=== PATIENT | female | born 1965 | race Two or more races ===

== ENCOUNTER 2022-08-29 20:29 | Inpatient (IN) | payer MEDICAID, OTHER ==
[~2022-08-29] VITALS: Ht 157.5 cm; Wt 61.0 kg
[2022-08-29 21:54] LABS: Albumin 3.8 g/dL (3.4-5.0); BUN/Creatinine Ratio 22.2 (10.0-20.0); Calcium 9.3 mg/dL (8.5-10.1); Potassium 3.4 mmol/L (3.5-5.1)
[2022-08-29 21:57] LABS: Basophils # (auto) 0.1 10 ^3/uL (0-0.2); Eosinophils # (auto) 0.2 10 ^3/uL (0-0.8); Eosinophils % (auto) 2.1 % (0.0-7.0); Hematocrit 37.3 % (36.0-46.0); Hemoglobin 12.8 g/dL (12.2-16.2); Lymphocytes # (auto) 1.5 10 ^3/uL (0.4-5.4); Lymphocytes % (auto) 19.5 % (10.0-50.0); Mean Corpuscular Hemoglobin 31.6 pg (28.0-32.0); Mean Corpuscular Hgb Conc. 34.3 g/dL (32.0-36.0); Monocytes # (auto) 0.5 10 ^3/uL (0-1.3); Monocytes % (auto) 6.2 % (0.0-12.0); Neutrophils # (auto) 5.5 10 ^3/uL (1.6-8.6); Neutrophils % (auto) 71.2 % (37.0-80.0); Red Blood Cells 4.05 10^6/uL (4.0-5.20); Red Cell Distribution Width 13.1 % (11.8-14.3); White Blood Cell 7.8 10^3/uL (4.4-10.8)
[2022-08-29 21:58] LABS: Bilirubin, Total 0.3 mg/dL (0.2-1.0); Total Protein 7.6 g/dL (6.4-8.2)
[2022-08-29 22:08] LABS: INR 1.04 (0.9-1.15); Partial Thromboplastin Time 28.5 SEC (24.5-34.5)
[2022-08-30] MEDS ORDERED: ONDANSETRON HCL 4 MG/2 ML VIAL IV ONE (02:15)
[2022-08-30] MEDS ORDERED: HYDROmorphone HCL 2 MG/ML VL/or syr IV ONE (02:15)
[2022-08-30] MEDS ORDERED: ENOXAPARIN SOD 60 MG/0.6 ML SYRINGE SC SCH ×2 (02:30→10:00)
[2022-08-30] MEDS ORDERED: ONDANSETRON HCL 4 MG/2 ML VIAL IV PRN (02:30)
[2022-08-30] MEDS ORDERED: DOCUSATE SOD 100 MG CAP PO PRN (02:30)
[2022-08-30] MEDS ORDERED: ACETAMINOPHEN 325 MG TAB PO PRN (02:30)
[2022-08-30] MEDS ORDERED: NITROGLYCERIN 0.4 MG SL TAB SL PRN (02:30)
[2022-08-30] MEDS ORDERED: DEXTROSE (50%) 50ML SYRG IV PRN (02:30)
[2022-08-30] MEDS ORDERED: MORPHINE SULFATE INJ 2 MG/ml SYRG IV PRN (02:30)
[2022-08-30] MEDS: SODIUM CHLORIDE 0.9% 1,000 ML IV SCH ×2 (03:10→19:10)
[2022-08-30] MEDS ORDERED: POTASSIUM CHL 20 Meq TABLET PO ONE (04:15)
[2022-08-30 04:58] LABS: Basophils # (auto) 0.1 10 ^3/uL (0-0.2); Basophils % (auto) 1.1 % (0.0-2.0); Eosinophils # (auto) 0.2 10 ^3/uL (0-0.8); Eosinophils % (auto) 2.7 % (0.0-7.0); Hematocrit 36.4 % (36.0-46.0); Hemoglobin 12.3 g/dL (12.2-16.2); Lymphocytes # (auto) 1.7 10 ^3/uL (0.4-5.4); Lymphocytes % (auto) 26.2 % (10.0-50.0); Mean Corpuscular Hemoglobin 31.3 pg (28.0-32.0); Mean Corpuscular Hgb Conc. 33.8 g/dL (32.0-36.0); Mean Corpuscular Volume 92.6 fL (80.0-100.0); Monocytes # (auto) 0.5 10 ^3/uL (0-1.3); Monocytes % (auto) 8.3 % (0.0-12.0); Neutrophils # (auto) 4.1 10 ^3/uL (1.6-8.6); Neutrophils % (auto) 61.7 % (37.0-80.0); Red Blood Cells 3.93 10^6/uL (4.0-5.20); Red Cell Distribution Width 13.2 % (11.8-14.3); White Blood Cell 6.6 10^3/uL (4.4-10.8)
[2022-08-30 05:20] LABS: Potassium 3.4 mmol/L (3.5-5.1)
[2022-08-30 05:35] LABS: Albumin 3.8 g/dL (3.4-5.0); BUN/Creatinine Ratio 23.6 (10.0-20.0); Bilirubin, Total 0.3 mg/dL (0.2-1.0); Calcium 9.3 mg/dL (8.5-10.1); Total Protein 7.1 g/dL (6.4-8.2)
[2022-08-30] MEDS: ACCU-CHEK COMFORT CURVE STRIP VI SCH ×4 (06:34→21:56)
[2022-08-30] MEDS: InsuLIN REG 1unit/0.01ml Soln (100units/ml) SC SCH ×4 (07:02→21:46)
[2022-08-30] MEDS: FAMOTIDINE (10MG/ML) 2ML VL IV SCH ×2 (09:56→21:46)
[2022-08-30 11:00] VITALS: BP 145/59
[2022-08-30] MEDS ORDERED: HEPARIN SODIUM (PORCINE) 5000 UNITS/ML 1ML VIAL IV ONE (11:15)
[2022-08-30] MEDS: HYDROmorphone HCL 2 MG/ML VL/or syr IV PRN (11:18)
[2022-08-30 11:36] LABS: Basophils # (auto) 0.1 10 ^3/uL (0-0.2); Basophils % (auto) 1.2 % (0.0-2.0); Eosinophils # (auto) 0.1 10 ^3/uL (0-0.8); Hematocrit 37.1 % (36.0-46.0); Hemoglobin 12.5 g/dL (12.2-16.2); Lymphocytes # (auto) 1.3 10 ^3/uL (0.4-5.4); Lymphocytes % (auto) 19.3 % (10.0-50.0); Mean Corpuscular Hemoglobin 30.9 pg (28.0-32.0); Mean Corpuscular Hgb Conc. 33.6 g/dL (32.0-36.0); Monocytes # (auto) 0.4 10 ^3/uL (0-1.3); Monocytes % (auto) 6.4 % (0.0-12.0); Neutrophils # (auto) 4.7 10 ^3/uL (1.6-8.6); Neutrophils % (auto) 72.1 % (37.0-80.0); Red Blood Cells 4.03 10^6/uL (4.0-5.20); Red Cell Distribution Width 13.3 % (11.8-14.3); White Blood Cell 6.6 10^3/uL (4.4-10.8)
[2022-08-30 11:51] LABS: INR 1.08 (0.9-1.15); Partial Thromboplastin Time 29.7 SEC (24.5-34.5)
[2022-08-30 12:56] VITALS: BP 135/70
[2022-08-30] MEDS ORDERED: PNEUMOCOCCAL VACC POLYS 25 MCG/0.5 ML VIAL IM ONE (13:00)
[2022-08-30] MEDS ORDERED: FURO1TAB33 PO (13:17)
[2022-08-30] MEDS ORDERED: GABA-1250 PO (13:17)
[2022-08-30] MEDS ORDERED: LISI-706 PO (13:17)
[2022-08-30] MEDS ORDERED: ASPI-543 PO (13:17)
[2022-08-30] MEDS ORDERED: ATOR10TA PO (13:17)
[2022-08-30] MEDS ORDERED: METF-370 PO (13:17)
[2022-08-30] MEDS ORDERED: INSLANTI SC (13:17)
[2022-08-30] MEDS ORDERED: BACL10TA PO (13:17)
[2022-08-30] MEDS ORDERED: INSLISPI SC (13:17)
[2022-08-30] MEDS ORDERED: ESCI10TA PO (13:17)
[2022-08-30 17:18] VITALS: BP 147/55
[2022-08-30] MEDS: HEPARIN DRIP/D5W 100UNITS/ML 250 ML IV SCH (17:50)
[2022-08-30 20:00] VITALS: BP 147/55
[2022-08-30 22:00] VITALS: BP 154/59
[2022-08-30] MEDS ORDERED: ATORVASTATIN 20 MG TAB PO SCH (22:00)
[2022-08-31] VITALS (7 sets, daily range): BP systolic 119–139; BP diastolic 55–83
[2022-08-31 01:00] LABS: INR 1.04 (0.9-1.15); Partial Thromboplastin Time 26.8 SEC (24.5-34.5)
[2022-08-31] MEDS ORDERED: HEPARIN SODIUM (PORCINE) 5000 UNITS/ML 1ML VIAL IV NR (01:45)
[2022-08-31] MEDS: HYDROmorphone HCL 2 MG/ML VL/or syr IV PRN (06:02)
[2022-08-31] MEDS: ACCU-CHEK COMFORT CURVE STRIP VI SCH ×4 (06:03→21:56)
[2022-08-31] MEDS: InsuLIN REG 1unit/0.01ml Soln (100units/ml) SC SCH ×4 (06:12→21:48)
[2022-08-31 06:28] LABS: Basophils # (auto) 0.1 10 ^3/uL (0-0.2); Basophils % (auto) 1.3 % (0.0-2.0); Eosinophils # (auto) 0.4 10 ^3/uL (0-0.8); Eosinophils % (auto) 4.3 % (0.0-7.0); Hematocrit 36.8 % (36.0-46.0); Hemoglobin 12.6 g/dL (12.2-16.2); Lymphocytes # (auto) 2.6 10 ^3/uL (0.4-5.4); Lymphocytes % (auto) 30.3 % (10.0-50.0); Mean Corpuscular Hemoglobin 31.6 pg (28.0-32.0); Mean Corpuscular Hgb Conc. 34.3 g/dL (32.0-36.0); Monocytes # (auto) 0.7 10 ^3/uL (0-1.3); Monocytes % (auto) 7.6 % (0.0-12.0); Neutrophils # (auto) 4.9 10 ^3/uL (1.6-8.6); Neutrophils % (auto) 56.5 % (37.0-80.0); Red Cell Distribution Width 13.2 % (11.8-14.3); White Blood Cell 8.6 10^3/uL (4.4-10.8)
[2022-08-31 06:43] LABS: Albumin 3.7 g/dL (3.4-5.0); Calcium 9.2 mg/dL (8.5-10.1); Potassium 3.2 mmol/L (3.5-5.1)
[2022-08-31 06:46] LABS: BUN/Creatinine Ratio 20.8 (10.0-20.0); Bilirubin, Total 0.4 mg/dL (0.2-1.0); Total Protein 7.2 g/dL (6.4-8.2)
[2022-08-31] MEDS: FAMOTIDINE (10MG/ML) 2ML VL IV SCH ×2 (09:18→20:27)
[2022-08-31 10:04] LABS: INR 3.35 (0.9-1.15); Partial Thromboplastin Time 57.3 SEC (24.5-34.5)
[2022-08-31] MEDS: HEPARIN DRIP/D5W 100UNITS/ML 250 ML IV SCH ×2 (10:52→13:28)
[2022-08-31] MEDS: SODIUM CHLORIDE 0.9% 1,000 ML IV SCH (11:17)
[2022-08-31 11:39] LABS: INR 1.09 (0.9-1.15)
[2022-08-31 12:24] LABS: Partial Thromboplastin Time 129.8 SEC (24.5-34.5)
[2022-08-31] MEDS ORDERED: ASPirin 81 mg TAB PO ONE (12:45)
[2022-08-31] MEDS ORDERED: FUROSEMIDE 20 MG TAB PO ONE (12:45)
[2022-08-31] MEDS ORDERED: ATORVASTATIN 20 MG TAB PO ONE (12:45)
[2022-08-31] MEDS: GABAPENTIN 300 MG CAP PO SCH ×2 (14:07→20:35)
[2022-08-31] MEDS: BACLOFEN 10 MG TAB PO PRN (14:08)
[2022-08-31] MEDS: LISINOPRIL HCTZ PO SCH (16:49)
[2022-08-31 20:30] LABS: INR 1.06 (0.9-1.15); Partial Thromboplastin Time 57.2 SEC (24.5-34.5)
[2022-08-31] MEDS: INSULIN LANTUS (GLARGINE) 1 /0.01ml (100units/ml) SC SCH (21:54)
[2022-09-01] MEDS: HYDROcodone-ACET 5/325MG TAB PO PRN (00:44)
[2022-09-01] MEDS: SODIUM CHLORIDE 0.9% 1,000 ML IV SCH ×2 (04:30→21:49)
[2022-09-01 05:00] VITALS: BP 124/64
[2022-09-01] MEDS: GABAPENTIN 300 MG CAP PO SCH ×3 (05:30→21:56)
[2022-09-01] MEDS: ACCU-CHEK COMFORT CURVE STRIP VI SCH ×4 (05:31→21:57)
[2022-09-01] MEDS: InsuLIN REG 1unit/0.01ml Soln (100units/ml) SC SCH ×4 (06:15→21:58)
[2022-09-01 09:00] VITALS: BP 152/64
[2022-09-01] MEDS: INSULIN LISPRO (HUMAN) 100 UNITS/ML ML SC SCH ×3 (10:00→17:08)
[2022-09-01] MEDS ORDERED: PATIENTS OWN MEDICATION PO SCH (10:00)
[2022-09-01] MEDS ORDERED: LISINOPRIL 20 MG TAB PO SCH (10:00)
[2022-09-01] MEDS ORDERED: HCTZ 25 MG TAB PO SCH (10:00)
[2022-09-01] MEDS: ASPirin 81 mg TAB PO SCH (10:11)
[2022-09-01] MEDS: FAMOTIDINE (10MG/ML) 2ML VL IV SCH ×2 (10:12→21:57)
[2022-09-01] MEDS: FUROSEMIDE 20 MG TAB PO SCH (10:12)
[2022-09-01] MEDS: metFORMIN HYDROCHLORIDE 500 MG TAB PO SCH (10:12)
[2022-09-01] MEDS: LISINOPRIL HCTZ PO SCH (10:13)
[2022-09-01] MEDS: HEPARIN DRIP/D5W 100UNITS/ML 250 ML IV SCH (11:58)
[2022-09-01 13:00] VITALS: BP 150/67
[2022-09-01 13:42] LABS: INR 1.07 (0.9-1.15); Partial Thromboplastin Time 64.3 SEC (24.5-34.5)
[2022-09-01 17:00] VITALS: BP 154/57
[2022-09-01 20:00] VITALS: BP 114/59
[2022-09-01] MEDS: BACLOFEN 10 MG TAB PO PRN (21:55)
[2022-09-01] MEDS: INSULIN LANTUS (GLARGINE) 1 /0.01ml (100units/ml) SC SCH (21:59)
[2022-09-01 22:00] VITALS: BP 114/59
[2022-09-01] MEDS ORDERED: ATORVASTATIN 20 MG TAB PO SCH (22:00)
[2022-09-02] MEDS: HYDROmorphone HCL 2 MG/ML VL/or syr IV PRN (00:36)
[2022-09-02] MEDS: HYDROcodone-ACET 5/325MG TAB PO PRN ×2 (01:54→08:12)
[2022-09-02 05:00] VITALS: BP 115/56
[2022-09-02 06:22] LABS: INR 1.08 (0.9-1.15)
[2022-09-02] MEDS: BACLOFEN 10 MG TAB PO PRN (06:39)
[2022-09-02] MEDS: GABAPENTIN 300 MG CAP PO SCH (06:40)
[2022-09-02] MEDS: ACCU-CHEK COMFORT CURVE STRIP VI SCH ×2 (06:45→11:18)
[2022-09-02] MEDS: InsuLIN REG 1unit/0.01ml Soln (100units/ml) SC SCH ×2 (06:46→11:17)
[2022-09-02] MEDS: INSULIN LISPRO (HUMAN) 100 UNITS/ML ML SC SCH ×2 (06:46→10:50)
[2022-09-02 06:51] LABS: Partial Thromboplastin Time 72.9 SEC (24.5-34.5)
[2022-09-02] MEDS: ASPirin 81 mg TAB PO SCH (08:12)
[2022-09-02] MEDS: FAMOTIDINE (10MG/ML) 2ML VL IV SCH (08:12)
[2022-09-02] MEDS: FUROSEMIDE 20 MG TAB PO SCH (08:13)
[2022-09-02] MEDS: LISINOPRIL HCTZ PO SCH (08:14)
[2022-09-02 08:54] LABS: Hepatitis B Surface Antibody Positive (Negative)
[2022-09-02 08:59] VITALS: BP 152/74
[2022-09-02 09:30] LABS: Hepatitis A Total Antibody Positive (Negative)
[2022-09-02] MEDS ORDERED: APIXABAN 5 MG TAB PO SCH (10:00)
[2022-09-02] MEDS ORDERED: APIX5TAB PO (10:10)
[2022-09-02] MEDS: metFORMIN HYDROCHLORIDE 500 MG TAB PO SCH (11:17)
[2022-09-02 11:27] VITALS: BP 152/74
[2022-09-02 13:38] LABS: Hepatitis C Antibody Negative (Negative)
[2022-09-09] MEDS ORDERED: APIXABAN 5 MG TAB PO SCH (22:00)
== END 2022-09-02 12:30 | disposition home or self-care (01) | DRG 197 ==
LOC: ER 20:34 → TELE 08-30 02:30 → TELE-CENTR 08-30 10:11
PROVIDERS: ADMIT Nurse Practitioner Family; ATTEND Internal Medicine
DX: I82.412 Acute embolism and thrombosis of left femoral vein (principal); I69.354 Hemiplegia and hemiparesis following cerebral infarction affecting left non-dominant side; E11.9 Type 2 diabetes mellitus without complications; E87.6 Hypokalemia; I10 Essential (primary) hypertension; I65.23 Occlusion and stenosis of bilateral carotid arteries; Z88.1 Allergy status to other antibiotic agents; Z90.710 Acquired absence of both cervix and uterus
CPT/HCPCS: 36415; 80053; 82962; 83036; 84484; 85025; 85610; 85730; 86704; 86706; 86708; 86803; 87340; 93971; 96372; 96374; 96375; 97110; 97116; 97163; 97530; 99291; G0378; J1815; J2405; J3490

== ENCOUNTER 2022-10-07 14:38 | Inpatient (IN) | payer MEDICAID ==
[~2022-10-07] VITALS: Ht 157.5 cm; Wt 60.4 kg
[~2022-10-07 14:38] MED LIST: APIX5TAB PO; ASPI-543 PO; ATOR10TA PO; BACL10TA PO; ESCI10TA PO; FURO1TAB33 PO; GABA-1250 PO; INSLANTI SC; INSLISPI SC; LISI-706 PO; METF-370 PO
[2022-10-07 15:50] VITALS: PULSE 98; RESP 16; O2SAT 98
[2022-10-07] MEDS ORDERED: MORPHINE SULFATE 4 MG/ML SYR/VIAL IV ONE (16:00)
[2022-10-07 16:22] LABS: Urine Bacteria FEW /hpf (None Seen); Urine Blood Negative /uL (Negative); Urine Clarity Clear (Clear); Urine Color Colorless (Yellow); Urine Protein, UAD Negative (Negative); Urine Specific Gravity 1.003 (1.001-1.035); Urine Urobilinogen Normal (Negative); Urine WBC 6 /hpf (0 - 5); Urine pH 6.5 (5.0-8.0)
[2022-10-07 16:32] LABS: Basophils # (auto) 0.1 10 ^3/uL (0-0.2); Eosinophils # (auto) 0.2 10 ^3/uL (0-0.8); Lymphocytes # (auto) 1.2 10 ^3/uL (0.4-5.4)
[2022-10-07 16:34] LABS: Basophils % (auto) 0.6 % (0.0-2.0); Eosinophils % (auto) 1.5 % (0.0-7.0); Hematocrit 35.7 % (36.0-46.0); Hemoglobin 12.2 g/dL (12.2-16.2); Lymphocytes % (auto) 9.5 % (10.0-50.0); Mean Corpuscular Hemoglobin 31.9 pg (28.0-32.0); Mean Corpuscular Hgb Conc. 34.3 g/dL (32.0-36.0); Monocytes # (auto) 0.7 10 ^3/uL (0-1.3); Monocytes % (auto) 5.7 % (0.0-12.0); Neutrophils # (auto) 10.5 10 ^3/uL (1.6-8.6); Neutrophils % (auto) 82.7 % (37.0-80.0); Red Blood Cells 3.84 10^6/uL (4.0-5.20); Red Cell Distribution Width 12.5 % (11.8-14.3); White Blood Cell 12.7 10^3/uL (4.4-10.8)
[2022-10-07 16:50] LABS: Albumin 3.7 g/dL (3.4-5.0); Calcium 9.3 mg/dL (8.5-10.1); Potassium 3.9 mmol/L (3.5-5.1)
[2022-10-07 16:51] LABS: INR 1.07 (0.9-1.15); Prothrombin Time 11.2 sec (9.3-11.8)
[2022-10-07 16:54] LABS: BUN/Creatinine Ratio 22.2 (10.0-20.0); Bilirubin, Total 0.4 mg/dL (0.2-1.0); Total Protein 7.1 g/dL (6.4-8.2)
[2022-10-07] MEDS ORDERED: cefTRIAXone 1GM/50ML D5W 50 ML IV ONE (18:00)
[2022-10-07] MEDS ORDERED: hydrALAZINE HCL 20 MG/ML VL IV PRN (18:00)
[2022-10-07] MEDS ORDERED: DEXTROSE (50%) 50ML SYRG IV PRN (18:00)
[2022-10-07] MEDS ORDERED: HYDROcodone-ACET 5/325MG TAB PO PRN (18:30)
[2022-10-07] MEDS ORDERED: ACETAMINOPHEN 325 MG TAB PO PRN (18:30)
[2022-10-07] MEDS ORDERED: levoFLOXacin 500MG 100 ML IV SCH (18:45)
[2022-10-07] MEDS: SODIUM CHLORIDE 0.9% 1,000 ML IV SCH (19:45)
[2022-10-07 20:00] VITALS: PULSE 84; RESP 10; O2SAT 97
[2022-10-07] MEDS: ACCU-CHEK COMFORT CURVE STRIP VI SCH (21:54)
[2022-10-07] MEDS: BACLOFEN 10 MG TAB PO SCH (21:54)
[2022-10-07] MEDS: HEPARIN SODIUM (PORCINE) 5000 UNITS/ML 1ML VIAL SC SCH (21:55)
[2022-10-07] MEDS: GABAPENTIN 300 MG CAP PO SCH (21:55)
[2022-10-07] MEDS: InsuLIN REG 1unit/0.01ml Soln (100units/ml) SC SCH (21:56)
[2022-10-07] MEDS ORDERED: APIXABAN 5 MG TAB PO SCH (22:00)
[2022-10-07 23:29] VITALS: BP 149/56; PULSE 77; RESP 18; TEMP 97.8; O2SAT 95
[2022-10-07] MEDS: HYDROcodone-ACET 5/325MG TAB PO PRN (23:50)
[2022-10-08] VITALS (8 sets, daily range): BP systolic 120–141; BP diastolic 52–61; PULSE 73–87; RESP 14–20; TEMP 97.8–99.2; O2SAT 0–99
[2022-10-08] MEDS: ACCU-CHEK COMFORT CURVE STRIP VI SCH ×4 (05:57→17:58)
[2022-10-08] MEDS: BACLOFEN 10 MG TAB PO SCH ×3 (05:57→21:50)
[2022-10-08] MEDS: GABAPENTIN 300 MG CAP PO SCH ×3 (05:57→21:50)
[2022-10-08] MEDS: InsuLIN REG 1unit/0.01ml Soln (100units/ml) SC SCH ×3 (06:07→17:58)
[2022-10-08 06:29] LABS: Basophils # (auto) 0.1 10 ^3/uL (0-0.2); Eosinophils # (auto) 0.2 10 ^3/uL (0-0.8); Hemoglobin 12.1 g/dL (12.2-16.2); Lymphocytes # (auto) 1.5 10 ^3/uL (0.4-5.4)
[2022-10-08 06:33] LABS: Basophils % (auto) 1.5 % (0.0-2.0); Eosinophils % (auto) 3.4 % (0.0-7.0); Hematocrit 34.9 % (36.0-46.0); Lymphocytes % (auto) 22.7 % (10.0-50.0); Mean Corpuscular Hemoglobin 31.8 pg (28.0-32.0); Mean Corpuscular Hgb Conc. 34.7 g/dL (32.0-36.0); Mean Corpuscular Volume 91.6 fL (80.0-100.0); Monocytes # (auto) 0.7 10 ^3/uL (0-1.3); Monocytes % (auto) 11.1 % (0.0-12.0); Neutrophils % (auto) 61.3 % (37.0-80.0); Nucleated Red Blood Cells % 0.1 %; Red Blood Cells 3.81 10^6/uL (4.0-5.20); Red Cell Distribution Width 12.5 % (11.8-14.3); White Blood Cell 6.5 10^3/uL (4.4-10.8)
[2022-10-08 06:43] LABS: Potassium 4.1 mmol/L (3.5-5.1)
[2022-10-08 06:50] LABS: Albumin 3.2 g/dL (3.4-5.0); BUN/Creatinine Ratio 20.8 (10.0-20.0); Bilirubin, Total 0.3 mg/dL (0.2-1.0); Total Protein 7.1 g/dL (6.4-8.2)
[2022-10-08] MEDS: SODIUM CHLORIDE 0.9% 1,000 ML IV SCH ×2 (07:50→21:10)
[2022-10-08] MEDS: HYDROcodone-ACET 5/325MG TAB PO PRN ×3 (08:20→17:57)
[2022-10-08] MEDS ORDERED: cefTRIAXone 1GM/50ML D5W 50 ML IV SCH (09:00)
[2022-10-08] MEDS: ASPirin-EC 81 mg tab PO SCH (10:44)
[2022-10-08] MEDS: LISINOPRIL 20 MG TAB PO SCH (10:44)
[2022-10-08] MEDS: HCTZ 25 MG TAB PO SCH (10:45)
[2022-10-08] MEDS: HEPARIN SODIUM (PORCINE) 5000 UNITS/ML 1ML VIAL SC SCH (10:45)
[2022-10-08] MEDS: CITALOPRAM HYDROBR 20 MG TAB PO SCH (10:46)
[2022-10-08] MEDS: ATORVASTATIN 20 MG TAB PO SCH (17:57)
[2022-10-08] MEDS: INSULIN LANTUS (GLARGINE) 1 /0.01ml (100units/ml) SC SCH (22:00)
[2022-10-08] MEDS ORDERED: HEPARIN SODIUM (PORCINE) 5000 UNITS/ML 1ML VIAL SC SCH (22:00)
[2022-10-09] VITALS (11 sets, daily range): BP systolic 106–168; BP diastolic 54–66; PULSE 63–99; RESP 16–20; TEMP 97.6–99.1; O2SAT 96–99
[2022-10-09] MEDS: HYDROcodone-ACET 5/325MG TAB PO PRN ×3 (00:10→12:22)
[2022-10-09] MEDS: GABAPENTIN 300 MG CAP PO SCH ×3 (05:43→21:49)
[2022-10-09] MEDS: BACLOFEN 10 MG TAB PO SCH ×3 (05:43→21:49)
[2022-10-09 06:32] LABS: Basophils # (auto) 0.1 10 ^3/uL (0-0.2); Eosinophils # (auto) 0.2 10 ^3/uL (0-0.8); Hematocrit 34.5 % (36.0-46.0); Hemoglobin 11.8 g/dL (12.2-16.2); Lymphocytes # (auto) 1.9 10 ^3/uL (0.4-5.4); Mean Corpuscular Hgb Conc. 34.2 g/dL (32.0-36.0); Red Blood Cells 3.72 10^6/uL (4.0-5.20)
[2022-10-09 06:34] LABS: Basophils % (auto) 1.4 % (0.0-2.0); Eosinophils % (auto) 2.3 % (0.0-7.0); Mean Corpuscular Hemoglobin 31.7 pg (28.0-32.0); Mean Corpuscular Volume 92.7 fL (80.0-100.0); Monocytes # (auto) 0.6 10 ^3/uL (0-1.3); Monocytes % (auto) 9.2 % (0.0-12.0); Neutrophils # (auto) 4.3 10 ^3/uL (1.6-8.6); Neutrophils % (auto) 60.1 % (37.0-80.0); Red Cell Distribution Width 12.7 % (11.8-14.3); White Blood Cell 7.1 10^3/uL (4.4-10.8)
[2022-10-09] MEDS: InsuLIN REG 1unit/0.01ml Soln (100units/ml) SC SCH ×3 (06:45→17:50)
[2022-10-09] MEDS: ACCU-CHEK COMFORT CURVE STRIP VI SCH ×4 (06:45→21:50)
[2022-10-09 07:02] LABS: Albumin 3.4 g/dL (3.4-5.0); BUN/Creatinine Ratio 14.5 (10.0-20.0); Bilirubin, Total 0.2 mg/dL (0.2-1.0); Total Protein 7.1 g/dL (6.4-8.2)
[2022-10-09] MEDS: cefTRIAXone 1GM/50ML D5W 50 ML IV SCH (08:00)
[2022-10-09] MEDS: CITALOPRAM HYDROBR 20 MG TAB PO SCH (10:00)
[2022-10-09] MEDS: HCTZ 25 MG TAB PO SCH (10:00)
[2022-10-09] MEDS: ASPirin-EC 81 mg tab PO SCH (10:00)
[2022-10-09] MEDS: LISINOPRIL 20 MG TAB PO SCH (10:00)
[2022-10-09] MEDS: SODIUM CHLORIDE 0.9% 1,000 ML IV SCH ×2 (10:30→23:32)
[2022-10-09] MEDS ORDERED: TETRACAINE 1% INJ 2 ML VIAL IJ ONE (10:51)
[2022-10-09] MEDS ORDERED: SODIUM CHLORIDE LOCK 10 ML ONE (10:56)
[2022-10-09] MEDS ORDERED: EPINEPHrine HCL 1 MG/1 ML AMP ONE (10:56)
[2022-10-09] MEDS ORDERED: MIDAZOLAM HCL 2MG/2ML 2ml VIAL (1mg/ml) ONE (10:56)
[2022-10-09] MEDS ORDERED: BUPIVACAINE/DEXTROSE MPF 0.75% 2 ML AMP IT ONE (10:56)
[2022-10-09] MEDS ORDERED: ONDANSETRON HCL 4 MG/2 ML VIAL ONE (10:56)
[2022-10-09] MEDS ORDERED: fentaNYL CITRATE 100 MCG/2 ML VL ONE (10:56)
[2022-10-09] MEDS ORDERED: PROPOFOL 10 MG/ML 20 ML IV ONE (10:56)
[2022-10-09] MEDS ORDERED: DexAMETHasone SOD PHOS 10MG/1ML VIAL INJ ONE (10:56)
[2022-10-09] MEDS ORDERED: ceFAZolin 1GM/50ML 100 ML IV ONE (14:04)
[2022-10-09] MEDS ORDERED: diphenhdrAMINE HCL 50 MG/1 ML VL ONE (14:25)
[2022-10-09] MEDS ORDERED: LACTATED RINGER'S 1,000 ML IV SCH (15:00)
[2022-10-09] MEDS ORDERED: METOCLOPRAMIDE HCL 5MG/ml INJ 2ml VIAL IV PRN (15:15)
[2022-10-09] MEDS ORDERED: ACCU-CHEK COMFORT CURVE STRIP VI ONE (15:15)
[2022-10-09] MEDS ORDERED: MORPHINE SULFATE INJ 2 MG/ml SYRG IV PRN ×2 (15:15→22:45)
[2022-10-09] MEDS ORDERED: HYDROmorphone HCL 2 MG/ML VL/or syr IV PRN ×2 (15:15)
[2022-10-09] MEDS ORDERED: LABETALOL HCL 5 MG/ML 4ML SYRINGE IV ONE ×3 (15:36→16:30)
[2022-10-09] MEDS: ATORVASTATIN 20 MG TAB PO SCH (17:48)
[2022-10-09] MEDS: HYDROcodone-ACET 10/325MG TAB PO PRN (19:59)
[2022-10-09] MEDS: SODIUM CHLOR 0.9% PF (SALINE LOCK) 10ML VIAL/SYR IV SCH (21:50)
[2022-10-09] MEDS: INSULIN LANTUS (GLARGINE) 1 /0.01ml (100units/ml) SC SCH (21:55)
[2022-10-09] MEDS ORDERED: ceFAZolin 2 GM/D5W100ml 100 ML IV SCH (22:00)
[2022-10-10] MEDS: HYDROcodone-ACET 10/325MG TAB PO PRN ×4 (02:15→17:45)
[2022-10-10] MEDS: SODIUM CHLOR 0.9% PF (SALINE LOCK) 10ML VIAL/SYR IV SCH ×3 (05:41→22:25)
[2022-10-10] MEDS: GABAPENTIN 300 MG CAP PO SCH ×3 (05:41→22:23)
[2022-10-10] MEDS: BACLOFEN 10 MG TAB PO SCH ×3 (05:41→22:24)
[2022-10-10] MEDS: ACCU-CHEK COMFORT CURVE STRIP VI SCH ×4 (05:42→22:24)
[2022-10-10] MEDS ORDERED: ceFAZolin 1GM/50ML 100 ML IV SCH (06:00)
[2022-10-10] MEDS: InsuLIN REG 1unit/0.01ml Soln (100units/ml) SC SCH ×3 (06:08→17:09)
[2022-10-10 06:20] LABS: Eosinophils # (auto) 0 10 ^3/uL (0-0.8); Lymphocytes # (auto) 1.3 10 ^3/uL (0.4-5.4); Mean Corpuscular Volume 92.7 fL (80.0-100.0); Monocytes # (auto) 0.8 10 ^3/uL (0-1.3)
[2022-10-10 06:22] LABS: Basophils # (auto) 0.1 10 ^3/uL (0-0.2); Basophils % (auto) 0.6 % (0.0-2.0); Hematocrit 33.5 % (36.0-46.0); Hemoglobin 11.6 g/dL (12.2-16.2); Lymphocytes % (auto) 12.8 % (10.0-50.0); Mean Corpuscular Hemoglobin 32.1 pg (28.0-32.0); Mean Corpuscular Hgb Conc. 34.6 g/dL (32.0-36.0); Monocytes % (auto) 7.6 % (0.0-12.0); Neutrophils # (auto) 7.9 10 ^3/uL (1.6-8.6); Red Blood Cells 3.61 10^6/uL (4.0-5.20); Red Cell Distribution Width 12.8 % (11.8-14.3)
[2022-10-10 06:31] LABS: Potassium 3.7 mmol/L (3.5-5.1)
[2022-10-10 08:00] VITALS: BP 156/69; PULSE 98; RESP 18; TEMP 99.2; O2SAT 96
[2022-10-10 09:00] VITALS: BP 106/67; PULSE 94; RESP 22; TEMP 99.2; O2SAT 96
[2022-10-10] MEDS: cefTRIAXone 1GM/50ML D5W 50 ML IV SCH (09:02)
[2022-10-10] MEDS: HCTZ 25 MG TAB PO SCH (09:04)
[2022-10-10] MEDS: CITALOPRAM HYDROBR 20 MG TAB PO SCH (09:04)
[2022-10-10] MEDS: LISINOPRIL 20 MG TAB PO SCH (09:06)
[2022-10-10] MEDS: APIXABAN 5 MG TAB PO SCH ×2 (09:06→22:23)
[2022-10-10] MEDS: ASPirin-EC 81 mg tab PO SCH (09:06)
[2022-10-10 13:00] VITALS: BP 140/60; PULSE 81; RESP 18; TEMP 98.2; O2SAT 95
[2022-10-10] MEDS: SODIUM CHLORIDE 0.9% 1,000 ML IV SCH (13:38)
[2022-10-10 17:00] VITALS: BP 148/59; PULSE 80; RESP 18; TEMP 98.5; O2SAT 96
[2022-10-10] MEDS: ATORVASTATIN 20 MG TAB PO SCH (17:46)
[2022-10-10 20:00] VITALS: PULSE 84; RESP 18; O2SAT 98
[2022-10-10 22:00] VITALS: BP 149/75; PULSE 84; RESP 18; TEMP 98.7; O2SAT 98
[2022-10-10] MEDS ORDERED: INSULIN LANTUS (GLARGINE) 1 /0.01ml (100units/ml) SC SCH (22:00)
[2022-10-11] MEDS: SODIUM CHLORIDE 0.9% 1,000 ML IV SCH (02:58)
[2022-10-11] MEDS: HYDROcodone-ACET 5/325MG TAB PO PRN (03:22)
[2022-10-11 05:00] VITALS: BP 147/72; PULSE 74; RESP 19; TEMP 98.3; O2SAT 99
[2022-10-11] MEDS: GABAPENTIN 300 MG CAP PO SCH (06:26)
[2022-10-11] MEDS: BACLOFEN 10 MG TAB PO SCH (06:26)
[2022-10-11] MEDS: InsuLIN REG 1unit/0.01ml Soln (100units/ml) SC SCH (06:29)
[2022-10-11] MEDS: ACCU-CHEK COMFORT CURVE STRIP VI SCH ×2 (06:29→12:37)
[2022-10-11] MEDS: SODIUM CHLOR 0.9% PF (SALINE LOCK) 10ML VIAL/SYR IV SCH (06:30)
[2022-10-11 08:00] VITALS: BP 156/69; PULSE 98; RESP 18; TEMP 99.2; O2SAT 96
[2022-10-11 08:21] LABS: Basophils # (auto) 0.1 10 ^3/uL (0-0.2); Eosinophils # (auto) 0.1 10 ^3/uL (0-0.8); Monocytes # (auto) 0.9 10 ^3/uL (0-1.3); Red Blood Cells 3.78 10^6/uL (4.0-5.20); White Blood Cell 8.7 10^3/uL (4.4-10.8)
[2022-10-11 08:22] LABS: Basophils % (auto) 1.1 % (0.0-2.0); Eosinophils % (auto) 1.6 % (0.0-7.0); Hematocrit 36.2 % (36.0-46.0); Hemoglobin 11.7 g/dL (12.2-16.2); Lymphocytes # (auto) 1.9 10 ^3/uL (0.4-5.4); Mean Corpuscular Hgb Conc. 32.5 g/dL (32.0-36.0); Mean Corpuscular Volume 95.6 fL (80.0-100.0); Monocytes % (auto) 10.4 % (0.0-12.0); Neutrophils # (auto) 5.7 10 ^3/uL (1.6-8.6); Neutrophils % (auto) 64.9 % (37.0-80.0); Red Cell Distribution Width 12.8 % (11.8-14.3)
[2022-10-11 08:27] LABS: Albumin 3.3 g/dL (3.4-5.0); Calcium 8.8 mg/dL (8.5-10.1); Potassium 3.8 mmol/L (3.5-5.1)
[2022-10-11] MEDS: cefTRIAXone 1GM/50ML D5W 50 ML IV SCH (08:27)
[2022-10-11 08:30] LABS: BUN/Creatinine Ratio 12.7 (10.0-20.0); Bilirubin, Total 0.2 mg/dL (0.2-1.0)
[2022-10-11 08:38] VITALS: BP 158/76; PULSE 86; RESP 15; TEMP 98; O2SAT 97
[2022-10-11] MEDS ORDERED: HYDR-4798 PO (09:53)
[2022-10-11] MEDS: LISINOPRIL 20 MG TAB PO SCH (11:17)
[2022-10-11] MEDS: CITALOPRAM HYDROBR 20 MG TAB PO SCH (11:17)
[2022-10-11] MEDS: HCTZ 25 MG TAB PO SCH (11:17)
[2022-10-11] MEDS: APIXABAN 5 MG TAB PO SCH (11:18)
[2022-10-11] MEDS: ASPirin-EC 81 mg tab PO SCH (11:18)
[2022-10-11] MEDS: HYDROcodone-ACET 10/325MG TAB PO PRN (11:28)
[2022-10-11] MEDS ORDERED: InsuLIN REG 1unit/0.01ml Soln (100units/ml) SC SCH (11:30)
[2022-10-11 12:20] VITALS: BP 150/76; PULSE 87; RESP 15; TEMP 98.1; O2SAT 98
[2022-10-11 13:40] VITALS: BP 150/76; TEMP 36.7
== END 2022-10-11 14:37 | disposition home health service (06) | DRG 308 ==
LOC: EDBD 14:38 → ER 14:38 → OVERFLOW 18:32 → WEST WING 21:30
PROVIDERS: ADMIT Internal Medicine Pulmonary Disease
PROC: 0QS736Z Reposition Left Upper Femur with Intramedullary Internal Fixation Device, Percutaneous Approach (ICD-10-PCS; principal; 2022-10-09 14:07)
DX: S72.012A Unspecified intracapsular fracture of left femur, initial encounter for closed fracture (principal); E87.1 Hypo-osmolality and hyponatremia; I69.354 Hemiplegia and hemiparesis following cerebral infarction affecting left non-dominant side; D72.829 Elevated white blood cell count, unspecified; E11.9 Type 2 diabetes mellitus without complications; E78.5 Hyperlipidemia, unspecified; F17.210 Nicotine dependence, cigarettes, uncomplicated; W01.0XXA Fall on same level from slipping, tripping and stumbling without subsequent striking against object, initial encounter; N30.00 Acute cystitis without hematuria; I10 Essential (primary) hypertension; Z80.51 Family history of malignant neoplasm of kidney; Z82.3 Family history of stroke; Z82.49 Family history of ischemic heart disease and other diseases of the circulatory system; Z86.718 Personal history of other venous thrombosis and embolism; Z83.3 Family history of diabetes mellitus; Z88.1 Allergy status to other antibiotic agents; Z90.710 Acquired absence of both cervix and uterus; Z88.8 Allergy status to other drugs, medicaments and biological substances; Y93.89 Activity, other specified; Y92.89 Other specified places as the place of occurrence of the external cause; Y99.8 Other external cause status; Z53.29 Procedure and treatment not carried out because of patient's decision for other reasons
CPT/HCPCS: 36415; 71045; 72170; 73502; 76000; 80048; 80053; 81001; 82962; 83036; 83605; 85025; 85610; 87040; 87086; 93005; 93306; 93971; 96365; 96375; 97110; 97116; 97163; 97530; G0378; J0171; J0690; J0696; J1100; J1815; J1956; J2250; J2405; J2704; J3490

== ENCOUNTER 2024-09-23 11:52 | Inpatient (IN) | payer MEDICAID ==
[~2024-09-23] VITALS: Ht 157.5 cm; Wt 68.7 kg
[~2024-09-23 11:52] MED LIST changes: +HYDR-4798 PO
--- NOTE | 2024-09-23 12:11 | ED.PDOC ---
History of Present Illness HPI Comments 59-year-old female brought by family because she has been having slurred speech increased a left upper lower extremity weakness since last night approximately 11:00 p.m.. Progressively getting worse in the morning. Patient does have a history of CVA back in which affected her left upper lower extremity. She has been ambulating with the help of walker since then. Apart from CVA she does have a history of hypertension diabetes. Continues to smoke cigarettes. She is recovering from fracture of the right humerus which happened recently. Denies any other symptoms. Chief Complaint: Stroke Time Seen by MD: 12:04 Primary Care Provider: YOLANDA Reviewed Notes: Nurses Notes, Medications, Allergies Allergies: Coded Allergies: Cephalexin (Verified Allergy, Unknown, 08/29/22) Home Meds Active Scripts Hydrocodone-Acetaminophen (Hydrocodone Bitartrate/AC 10-325 mg) 1 Tab Tab, 1 TAB PO TIDPRN PRN for 7 Days, #21 TAB Prov:KELLY REYEZ MD 10/11/22 Apixaban Base (ELIQUIS) 5 Mg Tab, 5 MG PO BID, #60 TAB 5 Refills Prov:DOMINIC PARKS MD 09/02/22 Reported Medications Insulin Lispro (Human) (Humalog) 100 Unit/Ml Inj, 6 UNIT SC AC, INJ 08/30/22 Insulin Glargine (Lantus) 100 Unit/Ml Inj, 15 UNIT SC HS, INJ 08/30/22 Baclofen (Baclofen) 10 Mg Tab, 10 MG PO Q8HP for 30 Days, MG 08/30/22 Escitalopram Oxalate (Lexapro) 10 Mg Tab, 10 MG PO DAILY, TAB 08/30/22 Furosemide (Lasix) 20 Mg Tb, 20 MG PO DAILY, TAB 08/30/22 Lisinopril & Hydrochlorothiazi (Zestoretic 20-12.5 mg) 1 Tab Tab, 1 TAB PO DAILY, TAB 08/30/22 Aspirin (Aspir-Low) 81 Mg Tab, 81 MG PO DAILY for 30 Days, MG 08/30/22 Atorvastatin Calcium (Lipitor) 10 Mg Tab, 1 TAB PO QPM, #90 TAB 1 Refill 08/30/22 Metformin Hydrochloride (Metformin Hcl) 500 Mg Tab, 500 MG PO DAILY for 30 Days, MG 08/30/22 Gabapentin (Gabapentin) 300 Mg Cap, 300 MG PO TID for 30 Days, MG 08/30/22 Information Source: Patient Mode of Arrival: Wheelchair Severity: Moderate Timing: Hours Duration: Since onset Past Medical History PAST MEDICAL HISTORY: CVA, DM, High Lipids, HTN Surgical History: Hysterectomy BUILD ENGINEER History: No Pertinent BUILD ENGINEER History Family History Family History: Family hx of DM, Family hx of Cancer, Family hx of heart corwin Social History Smoker: Cigarettes Alcohol: Denies ETOH Use Drugs: Denies Drug Use Lives In: Home Constitutional: denies: chills, diaphoresis, fatigue, fever, malaise, sweats, weakness, others EENTM: denies: blurred vision, double vision, ear bleeding, ear discharge, ear drainage, ear pain, ear ringing, eye pain, eye redness, hearing loss, mouth pain, mouth swelling, nasal discharge, nose bleeding, nose congestion, nose pain, photophobia, tearing, throat pain, throat swelling, voice changes, others Respiratory: denies: cough, hemoptysis, orthopnea, SOB at rest, shortness of breath, SOB with excertion, stridor, wheezing, others Cardiovascular: denies: chest pain, dizzy spells, diaphoresis, Dyspnea on exertion, edema, irregular heart beat, left arm pain, lightheadedness, palpitations, PND, syncope, others Gastrointestinal: denies: abdomen distended, abdominal pain, blood streaked bowels, constipated, diarrhea, dysphagia, difficulty swallowing, hematemesis, melena, nausea, poor appetite, poor fluid intake, rectal bleeding, rectal pain, vomiting, others Genitourinary: denies: abnormal vagina bleeding, burning, dyspareunia, dysuria, flank pain, frequency, hematuria, incontinence, pain, , vagina discharge, urgency, others Neurological: reports: left sided weakness, speech problems; denies: dizziness, fainting, headache, left sided numbness, numbness, paresthesia, pre-existing deficit, right sided numbness, right sided weakness, seizure, tingling, tremors, weakness, others Musculoskeletal: denies: back pain, gout, joint pain, joint swelling, muscle pain, muscle stiffness, neck pain, others Integumetry: denies: bruises, change in color, change in hair/nails, dryness, laceration, lesions, lumps, rash, wounds, others Allergic/Immunocompromised: denies: Difficulty Healing, Frequent Infections, Hives, Itching, others Hematologic/Lymphatic: denies: anemia, blood clots, easy bleeding, easy bruising, swollen glands, others Endocrine: denies: excessive hunger, excessive sweating, excessive thirst, excessive urination, flushing, intolerance to cold, intolerance to heat, unexplained weight gain, unexplained weight loss, others Psychiatric: denies: anxiety, bipolar disorder, depression, hopeless, panic disorder, schizophrenia, sleepless, suicidal, others Physical Exam General Appearance: Moderate Distress HEENT: Normal ENT Inspection, Pharynx Normal, TMs Normal Neck: Full Range of Motion, Non-Tender, Normal, Normal Inspection Respiratory: Chest Non-Tender, Lungs Clear, No Accessory Muscle Use, No Respiratory Distress, Normal Breath Sounds Cardiovascular: No Edema, No JVD, No Murmur, No Gallop, Normal Peripheral Pulses, Regular Rate/Rhythm Breast Exam: Deferred Gastrointestinal: No Organomegaly, Non Tender, No Pulsatile Mass, Normal Bowel Sounds, Soft Genitalia: Deferred Pelvic: Deferred Rectal: Deferred Extremities: Decreased range of motion (Left upper lower extremity) Musculoskeletal : Apperance: Normal Neurologic: Speech Problem Cerebellar Function: NOT DONE Reflexes: NOT DONE Skin: Normal Color Peripheral Pulses: 3+ Radial (R), 3+ Radial (L) Lymphatic: No Adenopathy Was a procedure done? Was a procedure done?: No Differential Dx Considerations may include: CVA Electrolyte imbalance X-Ray, Labs, Meds, VS Patient alert. Has a left upper lower extremity weakness. Vitals stable. Answering questions. History of stroke. Was given aspirin. Clinical examination does show weakness along with the speech deficiency. Possibly will need MRI. Reviewed her previous visit. Explained to the patient. Continue to monitor. Time of 1ST Reevaluation: 12:08 Reevaluation 1ST: Unchanged Patient Education/Counseling: Diagnosis, Treatment, Prognosis Family Education/Counseling: Need For Follow Up SEPSIS Sepsis Screen Physician Orders Head Without Contrast (09/23/24 12:04) Aspirin Tablet (09/23/24 12:15) Troponin-I Hs (09/23/24 12:04) Complete Blood Count (09/23/24 12:04) Comprehensive Metabolic Panel (09/23/24 12:04) Chest Portable (09/23/24 12:04) Urinalysis (09/23/24 12:04) 0.9% Ns 30mls/Kg (09/23/24 12:15) Departure 1 Departure Time of Disposition: 12:10 Impression: Primary Impression: CVA (cerebral vascular accident) Qualified Codes: I63.9 - Cerebral infarction, unspecified Disposition: 09 ADMITTED INPATIENT Admit to: Med Surg Condition: Guarded Critical Care Note Critical Care Time?: Yes (90 min-critical care time only) Stability Stability form required: No Heart Score Heart Score: Heart Score Response (Comments) Value History Slightly Suspicious 0 EKG Normal 0 Age 45-64 1 Risk Factors >3 or Hx ASHD 2 Troponin Normal limit 0 Total 3 ANJEL ENGEL MD Sep 23, 2024 12:11
[2024-09-23] MEDS: SODIUM CHLORIDE 0.9% 1,000 ML IV ONE (12:37)
--- NOTE | 2024-09-23 12:47 | DVH ---
CLINICAL HISTORY: sob TECHNIQUE: View of the chest was obtained. WID: COMPARISON: XY CHEST PORTABLE on DOS: 10/07/22, XY CHEST PORTABLE on DOS: 08/29/22 FINDINGS: Lungs: clear Cardiomediastinal silhouette: normal in size Bones: No acute osseous abnormality. Imaged upper Abdomen: unremarkable. IMPRESSION: 1. NO ACUTE CARDIOPULMONARY PROCESS.
--- NOTE | 2024-09-23 12:50 | DVH ---
CLINICAL HISTORY: cva TECHNIQUE: Helical scanning was performed of the head from the skull base to the vertex. Multiplanar reconstructions were performed. This exam was performed according to our departmental dose optimizat ion program. Up-to-date CT equipment and radiation dose reduction techniques are utilized as appropri ate. WID: COMPARISON: None FINDINGS: Mild focal encephalomalacia of the bilateral high parietal lobes and subjacent white matter. There is no acute intracranial hemorrhage, CT evidence of acute ischemic changes, mass effect, midlin e shift, or extra-axial fluid collection. Ventricles are within normal limits. Calcification of the carotid siphons and vertebral arteries bilaterally. There is mild patchy subcortical and periventricular white hypoattenuation, non-specific. The image d intraorbital structures are unremarkable Mucosal thickening of the left sphenoidal sinus. Remainder of the paranasal sinuses and mastoid air c ells are clear. IMPRESSION: 1. Chronic high bilateral parietal lobe infarcts which may be related to watershed injury. 2. Mild chronic ischemic white matter change 3. No acute intracranial findings.
[2024-09-23 12:55] LABS: Hematocrit 45.2 % (36.0-46.0); Hemoglobin 14.4 g/dL (12.2-16.2); Mean Corpuscular Hemoglobin 31.6 pg (28.0-32.0); Mean Corpuscular Volume 99.4 fL (80.0-100.0); Nucleated Red Blood Cells % 0.1 %
[2024-09-23 12:57] VITALS: PULSE 90; RESP 14; O2SAT 96
[2024-09-23] MEDS: CLOPIDOGREL BISULFATE 75 MG TAB PO ONE (13:48)
[2024-09-23 13:58] LABS: Alanine Aminotransferase 16 U/L (7-40); Albumin 4.5 g/dL (3.2-4.8); Alkaline Phosphatase 89 U/L (46-116); Anion Gap 8 (5-15); BUN/Creatinine Ratio 8.6 (10.0-20.0); Calcium 9.8 mg/dL (8.7-10.4); Carbon Dioxide 25 mmol/L (20-31); Potassium 3.9 mmol/L (3.5-5.1); Sodium 141 mmol/L (136-145); Total Protein 6.5 g/dL (5.7-8.2)
[2024-09-23 13:59] LABS: Bilirubin, Total 0.3 mg/dL (0.2-1.0); Blood Urea Nitrogen 5 mg/dL (9-23); Chloride 108 mmol/L (98-107); Glucose 201 mg/dL (74-106)
[2024-09-23] MEDS ORDERED: DEXTROSE (50%) 50ML SYRG IV PRN (15:15)
[2024-09-23] MEDS ORDERED: ONDANSETRON HCL 4 MG/2 ML VIAL IV PRN (15:15)
[2024-09-23 15:38] LABS: Urine Protein, UAD Negative (Negative)
[2024-09-23] MEDS: HYDROcodone-ACET 5/325MG TAB PO PRN (15:57)
--- NOTE | 2024-09-23 16:25 | DVHHP2 ---
History of Present Illness Reason for Visit: Slurred speech History of Present Illness 59-year-old female presents for evaluation of slurred speech. Patient with a history of previous CVA with left-sided deficits presents after developing slurred speech that started last night and became worse today in the morning. Denies headache or blurred vision. No other acute complaints. Past Medical History Dyslipidemia, hypertension, diabetes mellitus, CVA Past Surgical History Hysterectomy Family History Heart disease and diabetes mellitus Smoke: No ALCOHOL: none Drugs: None Lives: with Family Review of Systems Review of Systems Review of systems are currently negative otherwise addressed in HPI. Allergies: Coded Allergies: Cephalexin (Verified Allergy, Unknown, 08/29/22) Medications Current Medications Medications Dose Ordered Sig/Jae Route Start Time Stop Time Status Last Admin Dose Admin Clopidogrel Bisulfate 75 mg DAILY PO 09/24/24 10:00 Apixaban 5 mg BID PO 09/23/24 22:00 Aspirin 81 mg DAILY PO 09/24/24 10:00 Atorvastatin Calcium 20 mg HS PO 09/23/24 22:00 Furosemide 20 mg DAILY PO 09/24/24 10:00 Gabapentin 300 mg TID PO 09/23/24 22:00 Lisinopril 20 mg DAILY PO 09/24/24 10:00 Diagnostic Test (Pha) 1 strip Q6HR 09/23/24 18:00 Insulin Human Regular Q6HR SC 09/23/24 18:00 Dextrose 50 ml UD PRN IV 09/23/24 15:15 Ondansetron HCl 4 mg Q4HP PRN IV 09/23/24 15:15 Acetaminophen/ Hydrocodone Bitart 1 tab Q6HPRN PRN PO 09/23/24 16:00 09/23/24 15:57 1 TAB Exam Vital Signs Vital Signs Date Time Temp Pulse Resp B/P (MAP) Pulse Ox O2 Delivery O2 Flow Rate FiO2 09/23/24 13:05 98.0 74 13 147/68 (94) 96 98.0 09/23/24 13:05 Room Air* 0 21 Exam Gen: 59-year-old female in mild distress Skin: Warm, dry, normal color and texture, no rash. HEENT: Normocephalic atraumatic, mucous membranes moist and pink. Neck: Cervical and supraclavicular nodes normal without enlargement, trachea is midline, thyroid gland is normal without masses. Pulmonary: Clear to auscultation and percussion bilaterally. Cardiac: Regular rate and rhythm. No murmur Abdomen: Soft, nontender, nondistended, bowel sounds present all 4 quadrants, no guarding, no rigidity, no organomegaly. Extremities: No cyanosis, clubbing, no edema Neuro: Cranial nerves II through XII grossly intact, slurred speech left-sided deficits previous CVA Labs/Xrays ORDERING PHYSICIAN: ANJEL ENGEL MD PROCEDURE(s): HWOCT - HEAD WITHOUT CONTRAST REASON: cva ORDER NUMBER(s): [id number], ACCESSION NUMBER(s): [id number] CLINICAL HISTORY: cva TECHNIQUE: Helical scanning was performed of the head from the skull base to the vertex. Multiplanar reconstructions were performed. This exam was performed according to our departmental dose optimization program. Up-to-date CT equipment and radiation dose reduction techniques are utilized as appropriate. WID: COMPARISON: None FINDINGS: Mild focal encephalomalacia of the bilateral high parietal lobes and subjacent white matter. There is no acute intracranial hemorrhage, CT evidence of acute ischemic changes, mass effect, midline shift, or extra-axial fluid collection. Ventricles are within normal limits. Calcification of the carotid siphons and vertebral arteries bilaterally. There is mild patchy subcortical and periventricular white hypoattenuation, non-specific. The imaged intraorbital structures are unremarkable Mucosal thickening of the left sphenoidal sinus. Remainder of the paranasal sinuses and mastoid air cells are clear. IMPRESSION: 1. Chronic high bilateral parietal lobe infarcts which may be related to watershed injury. 2. Mild chronic ischemic white matter change 3. No acute intracranial findings. ATED BY: JEFFY VITALE MD Labs Test 09/23/24 15:01 09/23/24 13:14 09/23/24 12:30 09/23/24 12:01 Range/Units Urine Color Colorless Yellow Urine Clarity Clear Clear Urine pH 6.5 5.0-9.0 Urine Specific [place] 1.003 1.001-1.035 Urine Protein Negative Negative Urine Ketones Negative Negative Urine Blood Negative Negative /uL Urine Nitrite Negative Negative Urine Bilirubin Negative Negative Urine Urobilinogen Normal Negative mg/dL Urine Leukocyte Esterase Negative Negative /uL Urine RBC None seen 0 - 4 /hpf Urine Microscopic WBC < 1 0-5 /HPF Urine Squamous Epithelial Cells Few <5 /hpf Urine Bacteria None seen None Seen /hpf Urine Glucose Normal Normal mg/dL Sodium Level 141 136-145 mmol/L Potassium Level 3.9 3.5-5.1 mmol/L Chloride Level 108 H 98-107 mmol/L Carbon Dioxide Level 25 20-31 mmol/L Anion Gap 8 5-15 Blood Urea Nitrogen 5 L 9-23 mg/dL Creatinine 0.58 0.550-1.02 mg/dL Glomerular Filtration Rate Calc 103 >90 mL/min BUN/Creatinine Ratio 8.6 L 10.0-20.0 Serum Glucose 201 H 74-106 mg/dL Calcium Level 9.8 8.7-10.4 mg/dL Total Bilirubin 0.3 0.2-1.0 mg/dL Aspartate Amino Transferase (AST) 18 13-40 U/L Alanine Aminotransferase (ALT) 16 7-40 U/L Alkaline Phosphatase 89 46-116 U/L Total Protein 6.5 5.7-8.2 g/dL Albumin 4.5 3.2-4.8 g/dL White Blood Count 5.4 4.4-10.8 10^3/uL Red Blood Count 4.55 4.0-5.20 10^6/uL Hemoglobin 14.4 12.2-16.2 g/dL Hematocrit 45.2 36.0-46.0 % Mean Corpuscular Volume 99.4 80.0-100.0 fL Mean Corpuscular Hemoglobin 31.6 28.0-32.0 pg Mean Corpuscular Hemoglobin Concent 31.8 L 32.0-36.0 g/dL Red Cell Distribution Width 15.2 H 11.8-14.3 % Platelet Count 232 140-450 10^3/uL Mean Platelet Volume 8.3 6.9-10.8 fL Neutrophils (%) (Auto) 65.7 37.0-80.0 % Lymphocytes (%) (Auto) 23.7 10.0-50.0 % Monocytes (%) (Auto) 9.4 0.0-12.0 % Eosinophils (%) (Auto) 0.4 0.0-7.0 % Basophils (%) (Auto) 0.8 0.0-2.0 % Neutrophils # (Auto) 3.6 1.6-8.6 10 ^3/uL Lymphocytes # (Auto) 1.3 0.4-5.4 10 ^3/uL Monocytes # (Auto) 0.5 0-1.3 10 ^3/uL Eosinophils # (Auto) 0 0-0.8 10 ^3/uL Basophils # (Auto) 0 0-0.2 10 ^3/uL Nucleated Red Blood Cells 0.1 % Troponin I High Sensitivity 4 </=34 ng/L POC Glucose 221 H 70-106 mg/dl SEPSIS Sepsis Screen Date sepsis recognized/suspect: Sep 23, 2024 Time Sepsis recognized/suspect: 1154 Recent Procedure: No On Antibiotic Therapy: No Respiratory Rate >20: No Heart Rate >90: No Temp<36 C (96.8 F) or >38.3 C: No SBP <90 or MAP <65 mmHG: No New Acute Mental Status Change: No Is the patient on CPAP, BIPAP,: No Physician Orders Head Without Contrast (09/23/24 12:04) Chest Portable (09/23/24 12:04) Sodium Chloride 0.9% (09/23/24 12:15) * Neurology Consult (09/23/24 15:04) Clopidogrel Bisulfate (Plavix) (09/24/24 10:00) Apixaban (Eliquis) (09/23/24 22:00) Aspirin Tablet (09/24/24 10:00) Atorvastatin (Lipitor) (09/23/24 22:00) Furosemide Tablet (Lasix Tablet) (09/24/24 10:00) Gabapentin Capsule (Neurontin Capsule) (09/23/24 22:00) Lisinopril Tablet (Zestril Tablet) (09/24/24 10:00) Basic Metabolic Panel (09/24/24 04:00) Glucose Blood (Accu-Chek Comfort Curve T (09/23/24 18:00) Insulin R (Human) (Insulin R) (09/23/24 18:00) Dextrose 50% Syringe (09/23/24 15:15) Admit (09/23/24 15:04) Ondansetron Hcl (Zofran) (09/23/24 15:15) Condition: Stable (09/23/24 15:04) Bedrest With Bathroom Privileg (09/23/24 15:04) Hydrocodone-Acet 5/325mg Tab ([place] 5/32 (09/23/24 16:00) Vital Signs Date Time Temp Pulse Resp B/P (MAP) Pulse Ox O2 Delivery O2 Flow Rate FiO2 09/23/24 13:05 98.0 74 13 147/68 (94) 96 98.0 09/23/24 13:05 Room Air* 0 21 09/23/24 12:57 90 14 96 Room Air* 0 21 09/23/24 12:57 90 14 177/69 (105) 96 09/23/24 11:55 97.7 90 18 165/76 (105) 97 97.7 Laboratory Tests Test 09/23/24 12:30 White Blood Count 5.4 10^3/uL (4.4-10.8) Medications Medications Dose Ordered Sig/Jae Route Start Time Stop Time Status Last Admin Dose Admin Acetaminophen/ Hydrocodone Bitart 1 tab Q6HPRN PRN PO 09/23/24 16:00 09/23/24 15:57 1 TAB Aspirin 325 mg ONCE ONCE PO 09/23/24 12:15 09/23/24 12:16 DC 09/23/24 12:37 325 MG Clopidogrel Bisulfate 75 mg ONCE ONCE PO 09/23/24 13:00 09/23/24 13:01 DC 09/23/24 13:48 75 MG Sodium Chloride 1,000 ml @ 150 mls/hr Q6H40M ONCE IV 09/23/24 12:15 09/23/24 18:54 09/23/24 12:37 150 MLS/HR Assessment/Plan Assessment/Plan ASSESSMENT RULE OUT CVA DIABETES MELLITUS HYPERTENSION PLAN ADMIT THE PATIENT TO [facility] TO THE HOSPITALIST NEPHROLOGY CONSULT MRI OF THE BRAIN PENDING RESUME HOME MEDICATIONS CONTINUE TREATMENT PER ORDERS. Plan discussed with: Patient My Orders Orders - ALANNA MEYER Procedure Category Date Status Time * Neurology Consult CONS 09/23/24 Transmitted 15:04 Clopidogrel Bisulfate PHA 09/24/24 In Process (Plavix) 10:00 Apixaban (Eliquis) PHA 09/23/24 In Process 22:00 Aspirin Tablet PHA 09/24/24 In Process 10:00 Atorvastatin (Lipitor) PHA 09/23/24 In Process 22:00 Furosemide Tablet PHA 09/24/24 In Process (Lasix Tablet) 10:00 Gabapentin Capsule PHA 09/23/24 In Process (Neurontin Capsule) 22:00 Lisinopril Tablet PHA 09/24/24 In Process (Zestril Tablet) 10:00 Basic Metabolic Panel LAB 09/24/24 Verified 04:00 Glucose Blood PHA 09/23/24 In Process (Accu-Chek Comfort 18:00 Insulin R (Human) PHA 09/23/24 In Process (Insulin R) 18:00 Dextrose 50% Syringe PHA 09/23/24 In Process 15:15 Admit ADMIT 09/23/24 Transmitted 15:04 Ondansetron Hcl PHA 09/23/24 In Process (Zofran) 15:15 Condition: Stable ROSIO 09/23/24 In Process 15:04 Bedrest With Bathroom ROSIO 09/23/24 In Process Privileg 15:04 Hydrocodone-Acet PHA 09/23/24 In Process 5/325mg Tab ([place] 16:00 Date of Service: Sep 23, 2024 Billing Provider: ALANNA MEYER Common Visit Codes: [id number] INP/OBS CARE (HIGH) ALANNA MEYER Sep 23, 2024 16:25
--- NOTE | 2024-09-23 16:45 | BSKYNEURO ---
[facility] Note # Demographics Consult Type: General Neurology Patient Location: Emergency Room First Name: TROITO Last Name: SIA Date of : 1965 Age: 59 Gender: Female Facility: [facility] Time of Initial Page (): 09/23/2024 12:07 Time of Return Call (): 09/23/2024 12:07 # HPI History: 59y F with hx of stroke in 2022 affected LUE and LLE, uses a walker at baseline. Since 11PM last night she has had speech difficulties and worsening of L sided deficits # Scores Time of exam and NIHSS (): 09/23/2024 13:51 Level of Consciousness 1a: [0] = Alert; keenly responsive LOC Questions 1b: [0] = Answers both questions correctly LOC Commands 1c: [0] = Performs both tasks correctly Best Gaze 2: [0] = Normal Visual 3: [0] = No visual loss Facial Palsy 4: [1] = Minor paralysis Motor Arm Left 5a: [0] = No drift Motor Arm Right 5b: [0] = No drift Motor Leg Left 6a: [0] = No drift Motor Leg Right 6b: [1] = Drift Limb Ataxia 7: [0] = Absent Sensory 8: [0] = Normal Best Language 9: [0] = No aphasia Dysarthria 10: [1] = Cczq-ev-kytdbidy dysarthria Extinction and Inattention 11: [0] = No abnormality NIHSS Total: 3 # Exam Vitals: vital signs reviewed # Data Time Head CT personally read by me (): 09/23/2024 13:[address]: - no bleed - per radiologist read # Assessment Impression: Recrudescence vs stroke # Plan Thrombolytic/Intervention: NOT IV Thrombolysis or IA Intervention candidate Thrombolytic Exclusion: > 4.5 hours Intraarterial Exclusion: - clinical exam not consistent with presence of large vessel occlusion (LVO), can reconsider if LVO found on vascular imaging Imaging: (urgency: routine): - MRI Brain without contrast Medication: - aspirin 81 mg daily - start statin with goal of LDL < 70 Other: - If patient has any neurological deterioration please call me back immediately - would not pursue stroke work-up if MRI is negative - I have discussed my recommendations with the referring provider toxic/metabolic/infectious workup per primary # Logistics Attestation of consult completion: The patient is located at: [facility]. Facility staff participated in the visit. I performed this telemedicine visit from my offsite office utilizing interactive 2 way audio and visual telecommunication technology. Consent: Verbal consent was obtained from the patient and/or family for this encounter. Total time spent in telemedicine encounter: I spent 18 minutes reviewing clinical data and/or imaging, obtaining history, examining the patient, communicating with the onsite care team, and in preparation of this report. # Demographics First Name: TORITO Last Name: SIA Facility: [facility] Electronically signed at 09/23/2024 16:44 ([place] Time) by Judit Leal, Yes JUDIT LEAL DO Sep 23, 2024 16:45
[2024-09-23 17:00] VITALS: BP 145/65; PULSE 76; RESP 17; TEMP 97.7; O2SAT 94
[2024-09-23] MEDS: ACCU-CHEK COMFORT CURVE STRIP VI SCH (17:59)
[2024-09-23] MEDS ORDERED: HYDROcodone-ACET 5/325MG TAB PO ONE (18:00)
[2024-09-23] MEDS: InsuLIN REG 1unit/0.01ml Soln (100units/ml) SC SCH (18:06)
[2024-09-23 18:13] VITALS: BP 145/65; PULSE 74; RESP 16
[2024-09-23] MEDS ORDERED: BUPR150T8 PO (18:41)
[2024-09-23] MEDS ORDERED: LOSA-535 PO (18:41)
[2024-09-23] MEDS ORDERED: LEFL1TAB3 PO (18:41)
[2024-09-23] MEDS ORDERED: AML5T GT (18:41)
[2024-09-23] MEDS ORDERED: ABAT1INJ SC (18:41)
[2024-09-23] MEDS ORDERED: INSLANTI SC (18:41)
[2024-09-23] MEDS ORDERED: HYDR-4491 PO (18:41)
[2024-09-23] MEDS ORDERED: ESCI1TAB36 PO (18:41)
[2024-09-23] MEDS ORDERED: ATOR20TA50 PO (18:41)
[2024-09-23] MEDS ORDERED: METH2.5T PO (18:41)
[2024-09-23] MEDS ORDERED: GABA-1250 PO (18:41)
[2024-09-23] MEDS ORDERED: CLOP75TA70 PO (18:41)
[2024-09-23] MEDS ORDERED: DOCU-94 PO (18:41)
[2024-09-23] MEDS ORDERED: TRAM50TA2 PO (18:41)
[2024-09-23] MEDS ORDERED: FOLITAB22 PO (18:41)
[2024-09-23 20:00] VITALS: PULSE 72; RESP 18; O2SAT 99
[2024-09-23 21:00] VITALS: BP 138/66; PULSE 72; RESP 18; TEMP 97.9; O2SAT 99
[2024-09-23] MEDS: ATORVASTATIN 20 MG TAB PO SCH (22:10)
[2024-09-23] MEDS: GABAPENTIN 300 MG CAP PO SCH (22:10)
[2024-09-23] MEDS: APIXABAN 5 MG TAB PO SCH (22:11)
[2024-09-24 01:00] VITALS: BP 135/74; PULSE 71; RESP 18; TEMP 97.9; O2SAT 98
[2024-09-24 05:00] VITALS: BP 153/67; PULSE 70; RESP 18; TEMP 97.6; O2SAT 97
[2024-09-24 09:00] VITALS: BP 142/68; PULSE 71; RESP 16; TEMP 97.5; O2SAT 97
[2024-09-24] MEDS: CLOPIDOGREL BISULFATE 75 MG TAB PO SCH (09:45)
[2024-09-24] MEDS ORDERED: ESCI1TAB36 PO (09:52)
[2024-09-24 09:59] LABS: Potassium 3.6 mmol/L (3.5-5.1); Sodium 142 mmol/L (136-145)
[2024-09-24 10:00] LABS: Anion Gap 8 (5-15); Carbon Dioxide 22 mmol/L (20-31)
[2024-09-24] MEDS ORDERED: FUROSEMIDE 20 MG TAB PO SCH (10:00)
[2024-09-24] MEDS ORDERED: LISINOPRIL 20 MG TAB PO SCH (10:00)
[2024-09-24] MEDS ORDERED: ENOXAPARIN SOD 40 MG/0.4 ML SYRINGE SC SCH (10:00)
[2024-09-24 10:01] LABS: Calcium 9.6 mg/dL (8.7-10.4)
[2024-09-24 10:04] LABS: Chloride 112 mmol/L (98-107)
[2024-09-24 10:06] LABS: BUN/Creatinine Ratio 11.3 (10.0-20.0)
[2024-09-24 10:10] LABS: Blood Urea Nitrogen 6 mg/dL (9-23); Glucose 195 mg/dL (74-106)
[2024-09-24 11:05] LABS: Amphetamine Screen, Urine Neg (NEGATIVE); Barbiturate Scree,Urine Neg (NEGATIVE); Opiate Scree,Urine Neg (NEGATIVE); Phencyclidine Screen, Urine Neg (NEGATIVE)
[2024-09-24 11:06] LABS: Benzodiazephine Screen, Urine Neg (NEGATIVE); Cannabinoid Screen, Urine Neg (NEGATIVE); Cocaine Screen, Urine Neg (NEGATIVE)
[2024-09-24] MEDS: CITALOPRAM HYDROBR 20 MG TAB PO ONE (13:00)
[2024-09-24] MEDS ORDERED: IOHEXOL 350 MG/ML 100ML IJ ONE (13:53)
--- NOTE | 2024-09-24 15:18 | DVH ---
INDICATION: r/o stroke COMPARISON: None TECHNIQUE: CTA head with intravenous contrast. CTA neck with intravenous contrast. 3D image postproce ssing was performed on a dedicated workstation and images were used for interpretation and reporting. Radiation Dose Information: CT Dose: CTDI volume is 22 mGy. Dose-length product is 790 mGy*cm CONTRAST: Type of contrast: Omni 350 Contrast injected: 85 ml FINDINGS: CTA head: There is normal enhancement of the visualized distal internal carotid, anterior and middle cerebral a rteries. There is a normal anterior communicating artery complex. Dense calcified plaque involving th e bilateral cavernous carotid arteries. No definite high-grade stenosis on the right. At least a mo derate stenosis on the left. Calcified plaque involving the bilateral V4 segments without high-grade stenosis. The vertebral, basilar, cerebellar and posterior cerebral arteries are within normal limits . The early parenchymal enhancement is grossly unremarkable. The visualized intracranial venous struc tures are grossly unremarkable. Hypodensities in the bilateral high parietal lobes. CTA neck: The visualized thoracic aortic arch and proximal great vessels are unremarkable. The left common, internal and external carotid arteries are within normal limits. High-grade stenosis proximal right internal carotid artery. The cervical segments of the right and left vertebral arteries are within normal limits. Patchy ground-glass opacities in the visualized lung apices. The surrounding soft tissues and osseous structures are otherwise unremarkable. IMPRESSION: 1. 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 2. High-grade stenosis of the proximal right internal carotid artery. Vascular surgery evaluation is recommended. 3. Likely old bilateral parietal infarcts. Patchy ground-glass opacities in the visualized lung apice s. All CT scans at this medical facility are performed using dose modulation techniques as appropriate t o a performed exam including the following: Automated exposure control was utilized; adjustment of th e MA and/or KV according to patient size; and use of iterative reconstruction technique. HS:Y
[2024-09-24 17:00] VITALS: BP 181/81; PULSE 86; RESP 18; TEMP 98.1; O2SAT 97
--- NOTE | 2024-09-24 18:57 | DVH ---
Indication: dizziness Technique: Real-time ultrasound images of the neck vessels with pryor-scale, color and wave Doppler we re obtained. Comparison: None Findings: Moderate to severe atherosclerotic plaque, more pronounced on the right. The following peak systolic velocities were recorded in cm/sec: Right internal carotid: Occlusion of the proximal right ICA. In the right mid ICA 163 Right common carotid: 68 Right external carotid: 193 Right internal/common carotid ratio: 2.4 Left internal carotid: 88 Left common carotid: 79 Left external carotid: 136 Left internal/common carotid ratio: 1.1 Right vertebral artery: Patent with normal antegrade direction of flow. Left vertebral artery: Patent with normal antegrade direction of flow. Impression: Occlusion of the proximal right ICA. There is reconstitution of the right mid ICA. Recommend CT angio gram of the neck to evaluate.
[2024-09-24] MEDS ORDERED: hydrALAZINE HCL 20 MG/ML VL IV ONE (19:15)
--- NOTE | 2024-09-24 19:17 | DVHPNRES ---
Progress Note Date Seen: Sep 24, 2024 Resident Creating Document: MIKKI TORRES RESIDENT Medical Necessity Reason Pt with a Central, PICC or Fol: No Subjective Review of Systems 59 year old female with history of CVA with left-sided weakness, hypertension, diabetes comes to the ED with the complaints of sudden onset of speech difficulty, she did not have headaches, vomiting nausea or or any other complaints. She denies chest pain, shortness of breath, fever, abdominal pain or any other complaints today. Review of the systems: The patient was seen and examined at the bedside. Overnight events were reviewed. ROS as above. Rest of the ROS is negative. Smoking history: 5 cigarettes a day for 30 years, active. Alcohol: Last drink was in 2000. Drugs: None Home medications: Eliquis, Plavix, metformin, Lantus 25 units Objective vital signs Vital Sign Date Time Temp Pulse Resp B/P (MAP) Pulse Ox O2 Delivery O2 Flow Rate FiO2 09/24/24 17:00 98.1 86 18 181/81 (114) 97 98.1 09/24/24 08:00 Room Air* 0 21 Total Intake and Output 09/23/24 09/23/24 09/24/24 15:00 23:00 07:00 Intake Total 300 ml 150 ml 240 ml Balance 300 ml 150 ml 240 ml medications Current Medications Medications Dose Ordered Sig/Jae Route Start Time Stop Time Status Last Admin Dose Admin Clopidogrel Bisulfate 75 mg DAILY PO 09/24/24 10:00 09/24/24 09:45 75 MG Apixaban 5 mg BID PO 09/23/24 22:00 09/24/24 09:44 5 MG Aspirin 81 mg DAILY PO 09/24/24 10:00 09/24/24 09:45 81 MG Atorvastatin Calcium 20 mg HS PO 09/23/24 22:00 09/23/24 22:10 20 MG Gabapentin 300 mg TID PO 09/23/24 22:00 09/24/24 15:15 300 MG Diagnostic Test (Pha) 1 strip Q6HR 09/23/24 18:00 09/24/24 18:25 1 STRIP Insulin Human Regular Q6HR SC 09/23/24 18:00 09/24/24 18:28 8 UNITS Dextrose 50 ml UD PRN IV 09/23/24 15:15 Ondansetron HCl 4 mg Q4HP PRN IV 09/23/24 15:15 Acetaminophen/ Hydrocodone Bitart 1 tab Q6HPRN PRN PO 09/23/24 16:00 09/24/24 12:45 1 TAB Citalopram Hydrobromide 10 mg DAILY PO 09/25/24 10:00 Bupropion HCl 150 mg BID@07,19 PO 09/24/24 19:00 09/24/24 18:25 150 MG Examination Pt is lying on bed General Appearance: Facial deviation towards the left side, Alert, Oriented X3, Cooperative, Mild distress HEENT: Atraumatic, Mucous membranes moist/pink Respiratory: Clear to auscultation, Normal air movement, No added sounds Cardiovascular: Regular rate, Normal S1, Normal S2, No murmurs Abdominal/ : Active bowel sounds, Soft, no distention, no tenderness Extremities: No edema, Normal pulses, No tenderness/swelling Skin: No Significant rash, except past surgical scars Neuro: Normal speech, left-sided upper and lower extremity weakness 4+ Psych/Mental Status: Mental status NL, Mood NL Nurse was there as belt operator during examination laboratory and microbiology Laboratory Tests 09/24/24 09:05 09/23/24 12:30 Test 09/24/24 09:05 Range/Units Serum Glucose 195 H 74-106 mg/dL Problem List/Assessment/Plan Problem List/Assessment/Plan Cerebrovascular accident with dysarthria and left-sided weakness MRI can not be done due to femur implants, after surgery in [address] scan findings: 1. 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 2. High-grade stenosis of the proximal right internal carotid artery. Vascular surgery evaluation is recommended. 3. Likely old bilateral parietal infarcts. Patchy ground-glass opacities in the visualized lung apices. Neurology consult done DVT Eliquis Plavix Diabetes HbA1c GI prophylaxis: Pantoprazole DVT prophylaxis: Eliquis Diet: Regular Goals of care discussed with the patient for more than 27 minutes: Full code status Case discussed with Dr. Baez, patient and RN Plan discussed with: Patient, Other (RN) My Orders My Orders Orders - MIKKI TORRES RESIDENT Procedure Category Date Status Time * Neurology Consult CONS 09/24/24 Transmitted 08:54 Date of Service: Sep 24, 2024 Billing Provider: DOMINIC BAEZ MD Common Visit Codes: [id number] INP/OBS CARE(HIGH) MIKKI TORRES RESIDENT Sep 24, 2024 19:17 DOMINIC BAEZ MD Sep 25, 2024 00:04
[2024-09-24 20:00] VITALS: PULSE 91; RESP 16; O2SAT 99
--- NOTE | 2024-09-24 20:07 | DVHINCON2 ---
Date of service: Sep 24, [address] Rm Reason for Consultation CVA History of Present Illness Ms. Alonso is a 59 years old right-handed female with a history of hypertension, diabetes, dyslipidemia, stroke with residual left-sided weakness, she came to the [facility] on 09/23/2024 with a chief company of slurred speech since 09/22/2024. At this time, she is alert and fully oriented, he speak with mild slurred voice, she provided the following history In the evening on 09/22/2024, he developed slurred speech where she was only able to vocalize, but not able to talk, he denies new focal weakness numbness, her problem is better after she came to the hospital. In [id number], she developed left-sided weakness, and she was not able to walk till two years afterwards. She was seen in the [facility] and she was said to have a stroke. He was found to have deep venous thrombosis, and she has been on Eliquis 5 mg b.i.d. since She reports 80% recovery on her left hemiparesis She tells me she has chronic carotid stenosis, she sees Dr. Stafford, a local neurologist for stroke and carotid stenosis. She wanted but I advised against to leave the hospital home before or facial discharge. I have advise her that she has more tests to go through Urinalysis, 09/23/2024: Unremarkable UDS, 09/24/2024: Negative CBC, 09/23/24: ok CMP, 09/23/2024: Okay HbA1c VitB12, 09/24/24: 440 Folate, 09/24/24: 33.23 Carotid Doppler, 09/24/2024: Occlusion of the proximal right ICA. There is reconstitution of the right mid ICA. Recommend CT angiogram of the neck to evaluate. CT head, 09/23/2024: 1. Chronic high bilateral parietal lobe infarcts which may be related to watershed injury. 2. Mild chronic ischemic white matter change 3. No acute intracranial findings CTA head, neck, 09/24/2024: 1. 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 2. High-grade stenosis of the proximal right internal carotid artery. V ascular surgery evaluation is recommended. 3. Likely old bilateral parietal infarcts. Patchy ground-glass opacities in the visualized lung apices. Past Medical History Hypertension, diabetes, dyslipidemia, stroke with residual left-sided weakness Past Surgical History Left hip fracture repair, hysterectomy Family History: Cerebrovascular accident (CVA) G8 FATHER Diabetes mellitus G8 MOTHER G8 FATHER Hypertension G8 MOTHER Renal cell carcinoma G8 MOTHER Renal disease G8 FATHER Family History Diabetes, hypertension, heart disease, cancer, stroke Social History She smokes, she denies a history of drug/alcohol abuse Allergies: Coded Allergies: Cephalexin (Verified Allergy, Unknown, 08/29/22) Home Meds Active Scripts Hydrocodone-Acetaminophen (Hydrocodone Bitartrate/AC 10-325 mg) 1 Tab Tab, 1 TAB PO TIDPRN PRN for 7 Days, #21 TAB Prov:KELLY REYEZ MD 10/11/22 Apixaban Base (ELIQUIS) 5 Mg Tab, 5 MG PO BID, #60 TAB 5 Refills Prov:DOMINIC PARKS MD 09/02/22 Reported Medications Tramadol Hcl (Tramadol Hcl) 50 Mg Tab, 50 MG PO, TAB 09/23/24 Docusate Sodium (Colace) 100 Mg Cap, 100 MG PO, CAP 09/23/24 Gabapentin (Gabapentin) 300 Mg Cap, 400 MG PO, CAP 09/23/24 Insulin Glargine (Lantus) 100 Unit/Ml Inj, 25 UNIT SC, INJ 09/23/24 Bupropion Hcl (Wellbutrin Sr) 150 Mg Tab, 100 MG PO, TAB 09/23/24 Escitalopram Oxalate (ESCITALOPRAM OXALATE) 10 Mg Tab, 15 MG PO, TAB 09/23/24 Clopidogrel Bisulfate (CLOPIDOGREL) 75 Mg Tab, 1 TAB PO DAILY, #90 TAB 1 Refill 09/23/24 Losartan Potassium (Losartan Potassium) 100 Mg Tab, 1 TAB PO DAILY, #30 TAB 5 Refills 09/23/24 Amlodipine Besylate (NORVASC TABLET) 5 Mg Tb, 10 MG GT, TAB 09/23/24 Atorvastatin Calcium (ATORVASTATIN CALCIUM) 20 Mg Tab, 1 TAB PO DAILY, #30 TAB 5 Refills 09/23/24 Abatacept Injection (Orencia) 125 Mg/Ml Inj, 125 MG SC, INJ 09/23/24 Leflunomide (Leflunomide) 20 Mg Tab, 20 MG PO, TAB 09/23/24 Hydroxychloroquine Sulfate (PLAQUENIL) 200 Mg Tab, 1 TAB PO BID, #180 TAB 3 Refills 09/23/24 Folic Gzty-Hlubasjjvm-Jlzeuwvw (Folbic) Tab, 1 TAB PO DAILY, #90 TAB 1 Refill 09/23/24 Methotrexate (Methotrexate) 2.5 Mg Tab, 2.5 MG PO, TAB 09/23/24 Baclofen (Baclofen) 10 Mg Tab, 10 MG PO Q8HP for 30 Days, MG 08/30/22 Furosemide (Lasix) 20 Mg Tb, 20 MG PO DAILY, TAB 08/30/22 Metformin Hydrochloride (Metformin Hcl) 500 Mg Tab, 500 MG PO DAILY for 30 Days, MG 08/30/22 Discontinued Reported Medications Escitalopram Oxalate (ESCITALOPRAM OXALATE) 10 Mg Tab, 1 TAB PO HS, #30 TAB 3 Refills 09/24/24 Insulin Lispro (Human) (Humalog) 100 Unit/Ml Inj, 6 UNIT SC AC, INJ 08/30/22 Insulin Glargine (Lantus) 100 Unit/Ml Inj, 15 UNIT SC HS, INJ 08/30/22 Escitalopram Oxalate (Lexapro) 10 Mg Tab, 10 MG PO DAILY, TAB 08/30/22 Lisinopril & Hydrochlorothiazi (Zestoretic 20-12.5 mg) 1 Tab Tab, 1 TAB PO DAILY, TAB 08/30/22 Aspirin (Aspir-Low) 81 Mg Tab, 81 MG PO DAILY for 30 Days, MG 08/30/22 Atorvastatin Calcium (Lipitor) 10 Mg Tab, 1 TAB PO QPM, #90 TAB 1 Refill 08/30/22 Gabapentin (Gabapentin) 300 Mg Cap, 300 MG PO TID for 30 Days, MG 08/30/22 Current Medications Current Medications Medications (Trade) Dose Ordered Sig/Jae Route PRN Reason Start Time Stop Time Status Last Admin Clopidogrel Bisulfate (Plavix) 75 mg DAILY PO 09/24/24 10:00 09/24/24 09:45 Apixaban (Eliquis) 5 mg BID PO 09/23/24 22:00 09/24/24 09:44 Aspirin 81 mg DAILY PO 09/24/24 10:00 09/24/24 09:45 Atorvastatin Calcium (Lipitor) 20 mg HS PO 09/23/24 22:00 09/23/24 22:10 Furosemide (Lasix Tablet) 20 mg DAILY PO 09/24/24 10:00 09/24/24 09:10 DC Gabapentin (Neurontin Capsule) 300 mg TID PO 09/23/24 22:00 09/24/24 15:15 Lisinopril (Zestril Tablet) 20 mg DAILY PO 09/24/24 10:00 09/24/24 09:10 DC Enoxaparin Sodium (Lovenox) 40 mg DAILY SC 09/24/24 10:00 09/23/24 15:37 DC Bupropion HCl (Wellbutrin Tablet) 150 mg BID@07,19 PO 09/24/24 12:00 09/24/24 12:27 DC Citalopram Hydrobromide (CeleXA TABLET) 10 mg DAILY PO 09/25/24 10:00 Bupropion HCl (Wellbutrin Tablet) 150 mg BID@07,19 PO 09/24/24 19:00 09/24/24 18:25 Amlodipine Besylate (Norvasc Tablet) 10 mg DAILY PO 09/24/24 19:15 UNV Gabapentin (Neurontin Capsule) 400 mg DAILY PO 09/25/24 10:00 UNV Patient Own Medication 1 tab DAILY PO 09/25/24 10:00 UNV Review of Systems As above, the other systems are negative Vital Signs Vital Signs Date Time Temp Pulse Resp B/P (MAP) Pulse Ox O2 Delivery O2 Flow Rate FiO2 09/24/24 17:00 98.1 86 18 181/81 (114) 97 98.1 09/24/24 08:00 Room Air* 0 21 Physical Exam GENERAL EXAM: General: the patient is well developed and nourished. No acute distress. HEENT: Normocephalic, neck is supple, no carotid bruits. No mass. RESPIRATORY: Normal respiratory effort with symmetrical lung expansion. Lungs clear to auscultation. CARDIOVASCULAR: Regular rate and rhythm with no murmurs. S1, S2. ABDOMEN: Soft, nontender, normal bowel sound NEUROLOGICAL: MENTAL STATUS: Awake and alert. Oriented to person, place, time and general circumstances. Able to give personal history. SPEECH, LANGUAGE, HIGHER CORTICAL FUNCTION: no aphasia or dysathria. CRANIAL NERVES: #2: Intact visual bazan to confrontation. The optic discs were sharp. #3,4,6: Pupils are equal, round and reactive. EOMs full and conjugate. #5: Facial sensation intact in all three divisions bilaterally. Mandibular strength intact. #7: Facial muscles symmetrical and strength intact. #8: Hearing grossly normal to voice. #9,10: Uvula and soft palate rise in the midline. Swallow and voice are normal. #11: Trapezius and sternomastoid strength intact bilaterally. #12: Tongue midline. No fasciculations or atrophy. SENSATION: Sensation to touch and pinprick is normal. MOTOR: Increased muscle tone in the left arm. Normal muscle bulk. No fasciculations. No abnormal movements or posturing. Muscle strength of the major groups in the right extremities is 5/5. Muscle strength of the major groups in the left extremities is 4/5. REFLEXES: Deep tendon reflexes are symmetrical. No pathological reflexes. CEREBELLAR/COORDINATION: Finger to nose is normal bilaterally. GAIT/STATION: deferred. Labs/Diagnostic Data Labs Test 09/24/24 18:17 09/24/24 10:52 09/24/24 09:05 09/24/24 08:49 Range/Units POC Glucose 303 H 70-106 mg/dl Vitamin B12 Level 440 211-911 pg/mL Folic Acid 33.32 >5.38 ng/mL Sodium Level 142 136-145 mmol/L Potassium Level 3.6 3.5-5.1 mmol/L Chloride Level 112 H 98-107 mmol/L Carbon Dioxide Level 22 20-31 mmol/L Anion Gap 8 5-15 Blood Urea Nitrogen 6 L 9-23 mg/dL Creatinine 0.53 L 0.550-1.02 mg/dL Glomerular Filtration Rate Calc 105 >90 mL/min BUN/Creatinine Ratio 11.3 10.0-20.0 Serum Glucose 195 H 74-106 mg/dL Hemoglobin A1c 8.5 H <5.7 % A1C Calcium Level 9.6 8.7-10.4 mg/dL Magnesium Level 2.0 1.6-2.6 mg/dL Urine Opiates Screen Neg NEGATIVE Urine Fentanyl Screen Neg NEGATIVE Urine Barbiturates Screen Neg NEGATIVE Urine Phencyclidine Screen Neg NEGATIVE Urine Amphetamines Screen Neg NEGATIVE Urine Benzodiazepines Screen Neg NEGATIVE Urine Cocaine Screen Neg NEGATIVE Urine Cannabinoids Screen Neg NEGATIVE Test 09/23/24 15:01 09/23/24 13:14 09/23/24 12:30 Range/Units Urine Color Colorless Yellow Urine Clarity Clear Clear Urine pH 6.5 5.0-9.0 Urine Specific [place] 1.003 1.001-1.035 Urine Protein Negative Negative Urine Ketones Negative Negative Urine Blood Negative Negative /uL Urine Nitrite Negative Negative Urine Bilirubin Negative Negative Urine Urobilinogen Normal Negative mg/dL Urine Leukocyte Esterase Negative Negative /uL Urine RBC None seen 0 - 4 /hpf Urine Microscopic WBC < 1 0-5 /HPF Urine Squamous Epithelial Cells Few <5 /hpf Urine Bacteria None seen None Seen /hpf Urine Glucose Normal Normal mg/dL Total Bilirubin 0.3 0.2-1.0 mg/dL Aspartate Amino Transferase (AST) 18 13-40 U/L Alanine Aminotransferase (ALT) 16 7-40 U/L Alkaline Phosphatase 89 46-116 U/L Total Protein 6.5 5.7-8.2 g/dL Albumin 4.5 3.2-4.8 g/dL White Blood Count 5.4 4.4-10.8 10^3/uL Red Blood Count 4.55 4.0-5.20 10^6/uL Hemoglobin 14.4 12.2-16.2 g/dL Hematocrit 45.2 36.0-46.0 % Mean Corpuscular Volume 99.4 80.0-100.0 fL Mean Corpuscular Hemoglobin 31.6 28.0-32.0 pg Mean Corpuscular Hemoglobin Concent 31.8 L 32.0-36.0 g/dL Red Cell Distribution Width 15.2 H 11.8-14.3 % Platelet Count 232 140-450 10^3/uL Mean Platelet Volume 8.3 6.9-10.8 fL Neutrophils (%) (Auto) 65.7 37.0-80.0 % Lymphocytes (%) (Auto) 23.7 10.0-50.0 % Monocytes (%) (Auto) 9.4 0.0-12.0 % Eosinophils (%) (Auto) 0.4 0.0-7.0 % Basophils (%) (Auto) 0.8 0.0-2.0 % Neutrophils # (Auto) 3.6 1.6-8.6 10 ^3/uL Lymphocytes # (Auto) 1.3 0.4-5.4 10 ^3/uL Monocytes # (Auto) 0.5 0-1.3 10 ^3/uL Eosinophils # (Auto) 0 0-0.8 10 ^3/uL Basophils # (Auto) 0 0-0.2 10 ^3/uL Nucleated Red Blood Cells 0.1 % Troponin I High Sensitivity 4 </=34 ng/L Assessment Slurred speech, like she had acute stroke on 09/22 24 Chronic stroke around [id number] with residual left hemiparesis DVT on Eliquis at home Carotid stenosis, follow-up by Dr. Stafford Plan/Recommendation Monitoring Supportive treatment Telemetry echocardiogram MRI brain scan Eliquis 5 mg b.i.d. Lipitor 20 mg daily Up to chair Physical therapy Quit tobacco swing/Lifestyle discussed Follow up with her neurologist on discharge KENZIE This medical document was created using an electronic medical record system with [employer] dictation system. Although this document has been carefully reviewed, there may still be some phonetic and typographical errors. These areas are purely typographical due to imperfections of the software programs, and do not reflect any compromise in the patient's medical care. Plan discussed with: Patient, Other JONATHAN GREENWOOD MD Sep 24, 2024 20:07
[2024-09-24 21:00] VITALS: BP 154/79; PULSE 88; RESP 18; TEMP 97.9; O2SAT 97
[2024-09-24] MEDS: GABAPENTIN 400 MG CAP PO SCH (22:00)
[2024-09-25] VITALS (7 sets, daily range): BP systolic 128–160; BP diastolic 67–85; PULSE 76–99; RESP 16–20; TEMP 97.1–98.1; O2SAT 94–99
[2024-09-25] MEDS ORDERED: LOSARTAN POTASSIUM 50 MG TAB PO SCH (10:00)
--- NOTE | 2024-09-25 11:37 | DVH ---
MRI BRAIN HEAD WO CONTRAST INDICATION: CVA EXAM DATE: 09/25/2024 09:54 AM COMPARISON: 09/23/24 PROCEDURE: Using a 1.5 Claire scanner, multisequence multiplanar imaging of the brain was obtained. FINDINGS: Acute infarct of the left sided josemanuel. Encephalomalacia of the bilateral parietal lobe from old infarct. The brain otherwise shows normal morphology and signal characteristics. No abnormal armin ceptibility hypointensity is present. The ventricles are normal in size. The midline structures are i ntact. The major intracranial flow voids are present. The aerated spaces are unremarkable. The orbita l contents and extracranial soft tissues appear normal. IMPRESSION: Acute infarct of the left sided josemanuel. Encephalomalacia of the bilateral parietal lobe from old infarct. Critical Result: Infarct Findings discussed with Alex Radford at 09/25/2024 11:34 AM and acknowledged receipt and understanding of the findings.
[2024-09-25] MEDS: CITALOPRAM HYDROBR 20 MG TAB PO SCH (11:39)
[2024-09-25 12:19] LABS: Hematocrit 43.3 % (36.0-46.0); Hemoglobin 14.8 g/dL (12.2-16.2); Mean Corpuscular Hemoglobin 31.8 pg (28.0-32.0); Mean Corpuscular Volume 92.9 fL (80.0-100.0); Nucleated Red Blood Cells % 0.1 %
[2024-09-25 12:24] LABS: Alanine Aminotransferase 16 U/L (7-40); Alkaline Phosphatase 96 U/L (46-116); Anion Gap 11 (5-15); BUN/Creatinine Ratio 8.8 (10.0-20.0); Bilirubin, Total 0.4 mg/dL (0.2-1.0); Calcium 10.2 mg/dL (8.7-10.4); Carbon Dioxide 21 mmol/L (20-31); Potassium 3.5 mmol/L (3.5-5.1); Sodium 140 mmol/L (136-145); Total Protein 7.5 g/dL (5.7-8.2)
[2024-09-25 12:31] LABS: Albumin 5.0 g/dL (3.2-4.8); Blood Urea Nitrogen 6 mg/dL (9-23); Chloride 108 mmol/L (98-107); Glucose 282 mg/dL (74-106)
[2024-09-25] MEDS: BACLOFEN 10 MG TAB PO PRN (14:24)
[2024-09-25 15:10] LABS: Triglycerides 112 mg/dL (< 150)
[2024-09-25 15:12] LABS: Cholesterol 130 mg/dL (< 200); HDL Cholesterol 56 mg/dL (40-59)
--- NOTE | 2024-09-25 15:50 | DVHPNRES ---
Progress Note Date Seen: Sep 25, 2024 Resident Creating Document: MIKKI TORRES RESIDENT Medical Necessity Reason Pt with a Central, PICC or Fol: No Subjective Review of Systems 59 year old female with history of CVA with left-sided weakness, hypertension, diabetes comes to the ED with the complaints of sudden onset of speech difficulty, she did not have headaches, vomiting nausea or or any other complaints. She denies chest pain, shortness of breath, fever, abdominal pain or any other complaints today. 09/25 Interval events: Review of the systems: The patient was seen and examined at the bedside. Overnight events were reviewed. Patient reports improvement in overall symptoms of stroke improved. Rest of the ROS is negative. Objective vital signs Vital Sign Date Time Temp Pulse Resp B/P (MAP) Pulse Ox O2 Delivery O2 Flow Rate FiO2 09/25/24 13:00 97.8 87 19 159/74 (102) 99 97.8 09/25/24 08:00 Room Air* 0 21 Total Intake and Output 09/24/24 09/24/24 09/25/24 15:00 23:00 07:00 Intake Total 600 ml 980 ml Balance 600 ml 980 ml medications Current Medications Medications Dose Ordered Sig/Jae Route Start Time Stop Time Status Last Admin Dose Admin Clopidogrel Bisulfate 75 mg DAILY PO 09/24/24 10:00 09/25/24 11:38 75 MG Apixaban 5 mg BID PO 09/23/24 22:00 09/25/24 11:38 5 MG Aspirin 81 mg DAILY PO 09/24/24 10:00 09/25/24 11:38 81 MG Diagnostic Test (Pha) 1 strip Q6HR 09/23/24 18:00 09/25/24 12:01 1 STRIP Insulin Human Regular Q6HR SC 09/23/24 18:00 09/25/24 12:03 6 UNITS Dextrose 50 ml UD PRN IV 09/23/24 15:15 Ondansetron HCl 4 mg Q4HP PRN IV 09/23/24 15:15 Citalopram Hydrobromide 10 mg DAILY PO 09/25/24 10:00 09/25/24 11:39 10 MG Bupropion HCl 150 mg BID@07,19 PO 09/24/24 19:00 09/25/24 06:19 150 MG Amlodipine Besylate 10 mg DAILY PO 09/24/24 19:15 Hold 09/25/24 11:37 10 MG Gabapentin 400 mg HS PO 09/24/24 22:00 Losartan Potassium 100 mg DAILY PO 09/25/24 10:00 Hold Acetaminophen/ Hydrocodone Bitart 1 tab Q6HPRN PRN PO 09/25/24 12:00 Baclofen 10 mg Q8HP PRN PO 09/25/24 12:00 09/25/24 14:24 10 MG Atorvastatin Calcium 40 mg HS PO 09/25/24 22:00 Examination General Appearance: Facial deviation towards the left side, Alert, Oriented X3, Cooperative, Mild distress HEENT: Atraumatic, Mucous membranes moist/pink Respiratory: Clear to auscultation, Normal air movement, No added sounds Cardiovascular: Regular rate, Normal S1, Normal S2, No murmurs Abdominal/ : Active bowel sounds, Soft, no distention, no tenderness Extremities: No edema, Normal pulses, No tenderness/swelling Skin: No Significant rash, except past surgical scars Neuro: Normal speech, left-sided upper and lower extremity weakness 4+ Psych/Mental Status: Mental status NL, Mood NL Nurse was there as clinical practitioner during examination laboratory and microbiology Laboratory Tests 09/25/24 11:57 Test 09/25/24 11:57 Range/Units Serum Glucose 282 H 74-106 mg/dL Labs and/or images reviewed: Labs reviewed by me, Image(s) reviewed by me Problem List/Assessment/Plan Problem List/Assessment/Plan Cerebrovascular accident with dysarthria and left-sided weakness Left pontine acute ischemic stroke Telemetry status MRI was done in a compatible machine, revealed left pontine stroke CT angio scan findings: Moderate stenosis of the left cavernous carotid artery. High-grade stenosis of the proximal right internal carotid artery. Vascular surgery evaluation is recommended. Likely old bilateral parietal infarcts. Patchy ground-glass opacities in the visualized lung apices. Neurology : Atorvastatin 40 mg, continue aspirin, clopidogrel, physical therapy and supportive management Echocardiography ordered to rule out embolic stroke Carotid artery stenosis: Cardiology on board Permissive hypertension due to stroke, held blood pressure medications HTN Monitor BP Permissive hypertension due to stroke, held blood pressure medications Hx DVT Eliquis Diabetes iss Smoking Counseling regarding quitting. GI prophylaxis: Pantoprazole DVT prophylaxis: Eliquis Diet: Regular Goals of care discussed with the patient for more than 27 minutes: Full code status Case discussed with Dr. Baez, patient and RN Plan discussed with: Patient, Other (RN) My Orders My Orders Orders - MIKKI TORRES RESIDENT Procedure Category Date Status Time Hydrocodone-Acet PHA 09/25/24 In Process 5/325mg Tab (Flatgap 12:00 Baclofen Tablet PHA 09/25/24 In Process (Liorisal Tablet) 12:00 * Cardiology Consult CONS 09/25/24 Transmitted 12:53 Date of Service: Sep 25, 2024 Billing Provider: DOMINIC BAEZ MD Common Visit Codes: [id number] INP/OBS CARE(HIGH) MIKKI TORRES RESIDENT Sep 25, 2024 15:50 DOMINIC BAEZ MD Sep 26, 2024 09:24
[2024-09-25] MEDS: HYDROcodone-ACET 5/325MG TAB PO PRN (18:16)
--- NOTE | 2024-09-25 20:01 | DVHPN2 ---
Progress Note - Dictate Date Seen: Sep 25, 2024 Medical Necessity Reason Pt with a Central, PICC or Fol: No Subjective Ms. Alonso is a 59 years old right-handed female with a history of hypertension, diabetes, dyslipidemia, stroke, DVT with residual left-sided weakness, she came to the [facility] on 09/23/2024 with a chief company of slurred speech since 09/22/2024. I have seen and examined the patient, I have talked to her nurse. She is doing fine, alert and fully oriented, she reports speech is better She confirmed that she she was on Eliquis and Plavix at home He related Dr. Rosalio Stafford was going to treat her carotid stenosis Urinalysis, 09/23/2024: Unremarkable UDS, 09/24/2024: Negative CBC, 09/23/24: ok CMP, 09/23/2024: Okay HbA1c, 09/24/2024: 8.5 TG/HDL/LDL/HDL, 09/25/2024: 112/130/60/56 VitB12, 09/24/24: 440 Folate, 09/24/24: 33.23 Carotid Doppler, 09/24/2024: Occlusion of the proximal right ICA. There is reconstitution of the right mid ICA. Recommend CT angiogram of the neck to evaluate. CT head, 09/23/2024: 1. Chronic high bilateral parietal lobe infarcts which may be related to watershed injury. 2. Mild chronic ischemic white matter change 3. No acute intracranial findings CTA head, neck, 09/24/2024: 1. 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 2. High-grade stenosis of the proximal right internal carotid artery. Vascular surgery evaluation is recommended. 3. Likely old bilateral parietal infarcts. Patchy ground-glass opacities in the visualized lung apices MRI head, 09/25/2024: Acute infarct of the left sided josemanuel. Encephalomalacia of the bilateral parietal lobe from old infarct vital signs Vital Sign Date Time Temp Pulse Resp B/P (MAP) Pulse Ox O2 Delivery O2 Flow Rate FiO2 09/25/24 17:00 97.5 85 17 148/80 (102) 97 97.5 09/25/24 08:00 Room Air* 0 21 Total Intake and Output 09/24/24 09/24/24 09/25/24 15:00 23:00 07:00 Intake Total 600 ml 980 ml Balance 600 ml 980 ml medications Current Medications Medications Dose Ordered Sig/Jae Route Start Time Stop Time Status Last Admin Dose Admin Clopidogrel Bisulfate 75 mg DAILY PO 09/24/24 10:00 09/25/24 11:38 75 MG Apixaban 5 mg BID PO 09/23/24 22:00 09/25/24 11:38 5 MG Aspirin 81 mg DAILY PO 09/24/24 10:00 09/25/24 11:38 81 MG Diagnostic Test (Pha) 1 strip Q6HR 09/23/24 18:00 09/25/24 17:16 1 STRIP Insulin Human Regular Q6HR SC 09/23/24 18:00 09/25/24 17:25 6 UNITS Dextrose 50 ml UD PRN IV 09/23/24 15:15 Ondansetron HCl 4 mg Q4HP PRN IV 09/23/24 15:15 Citalopram Hydrobromide 10 mg DAILY PO 09/25/24 10:00 09/25/24 11:39 10 MG Bupropion HCl 150 mg BID@07,19 PO 09/24/24 19:00 09/25/24 17:25 150 MG Amlodipine Besylate 10 mg DAILY PO 09/24/24 19:15 Hold 09/25/24 11:37 10 MG Gabapentin 400 mg HS PO 09/24/24 22:00 Losartan Potassium 100 mg DAILY PO 09/25/24 10:00 Hold Acetaminophen/ Hydrocodone Bitart 1 tab Q6HPRN PRN PO 09/25/24 12:00 09/25/24 18:16 1 TAB Baclofen 10 mg Q8HP PRN PO 09/25/24 12:00 09/25/24 14:24 10 MG Atorvastatin Calcium 40 mg HS PO 09/25/24 22:00 objective General: the patient is well developed and nourished. No acute distress. MENTAL STATUS: Awake and alert. Oriented to person, place, time and general circumstances. Able to give personal history. SPEECH, LANGUAGE, HIGHER CORTICAL FUNCTION: no aphasia or dysathria. CRANIAL NERVES: Pupils are equal, round and reactive. EOMs full and conjugate. Facial sensation intact in all three divisions bilaterally. Mandibular strength intact. Facial muscles symmetrical and strength intact. SENSATION: Sensation to touch and pinprick is normal. MOTOR: Increased muscle tone in the left arm. Normal muscle bulk. No fasciculations. No abnormal movements or posturing. Muscle strength of the major groups in the right extremities is 5/5. Muscle strength of the major groups in the left extremities is 4/5. REFLEXES: Deep tendon reflexes are symmetrical. No pathological reflexes. CEREBELLAR/COORDINATION: Finger to nose is normal bilaterally. GAIT/STATION: deferred. laboratory and microbiology Laboratory Tests 09/25/24 11:57 Test 09/25/24 11:57 Range/Units Serum Glucose 282 H 74-106 mg/dL Problem List Slurred speech, like she had acute stroke on 09/22 24 Chronic stroke around [id number] with residual left hemiparesis DVT on Eliquis at home Carotid stenosis, follow-up with Dr. Stafford Assessment/Plan Plan/Recommendation Monitoring Supportive treatment Telemetry echocardiogram Eliquis 5 mg b.i.d. Plavix 75 mg daily Lipitor 20 mg daily Up to chair Physical therapy Quit tobacco swing/Lifestyle discussed Follow up with her neurologist on discharge KENZIE The case was discussed with primary care team earlier today This medical document was created using an electronic medical record system with PAK dictation system. Although this document has been carefully reviewed, there may still be some phonetic and typographical errors. These areas are purely typographical due to imperfections of the software programs, and do not reflect any compromise in the patient's medical care. Prognosis poor Plan discussed with: Patient, Other Total Time (mins): 40 JONATHAN GREENWOOD MD Sep 25, 2024 20:01
--- NOTE | 2024-09-25 20:01 | DVHSR ---
APPROVED REPORT EXAM: Two-dimensional and M-mode echocardiogram with Doppler and color Doppler. Blood Pressure: 142/68 mmHg INDICATION Chest Pain RISK FACTORS Height: 62, Weight: 138 DIMENSIONS LVDd4.0 (3.8-5.7cm)LA (2D)3.1 (1.9-4.0cm)Aortic Root2.7 (2.0-3.7cm) LVDs2.8 (2.5-4.0cm)LA (MM) (1.9-4.0cm)Aortic Cusp Exc1.2 (1.5-2.0cm) EF (%) 65.0 (55-70%)Rt. Atrium3.5 (1.9-4.0cm)Asc. Aorta cm Mitral Valve MitralMitral Stenosis E wave0.85m/sMV Mean GR.mmHg A wave1.17m/sMV Peak GR.mmHg E/A ratio0.72D MVAcm2 DECEL [id number] 1/2 Atka40cm IVRTmsDop MVA2.28cm2 Aortic Valve Aortic ValveAortic Stenosis V11.05m/Gavino Mean GR.7mmHg V21.82m/Gavino Peak GR.13mmHg LVOT Diameter1.9 (1.8-2.4cm)Doppler AVA1.63cm2 Pulmonic Valve V21.22m/s Other Information Technically limited study due to body habitus and patient position. Conclusion Technically good study sinus rhythm. Left atrial enlargement. Mild aortic sclerosis. Mild mitral annular calcification. Tricuspid and pulmonic or structurally no rmal. Left ventricular function is preserved at 60% with normal RV function. Unremarkable Doppler. No pericardial effusion masses or vegetations.
[2024-09-25] MEDS ORDERED: ATORVASTATIN 20 MG TAB PO SCH (22:00)
[2024-09-25] MEDS: ATORVASTATIN 20 MG TAB PO SCH (22:21)
[2024-09-26 01:00] VITALS: BP 144/58; PULSE 83; RESP 14; TEMP 98; O2SAT 97
[2024-09-26 05:00] VITALS: BP 115/66; PULSE 74; RESP 16; TEMP 97.5; O2SAT 95
[2024-09-26 06:21] LABS: Hematocrit 40.2 % (36.0-46.0); Hemoglobin 14.0 g/dL (12.2-16.2); Mean Corpuscular Hemoglobin 32.0 pg (28.0-32.0); Mean Corpuscular Volume 92.1 fL (80.0-100.0); Nucleated Red Blood Cells % 0.0 %
[2024-09-26 06:39] LABS: Alanine Aminotransferase 16 U/L (7-40); Albumin 4.6 g/dL (3.2-4.8); Alkaline Phosphatase 85 U/L (46-116); Anion Gap 9 (5-15); BUN/Creatinine Ratio 8.5 (10.0-20.0); Bilirubin, Total 0.4 mg/dL (0.2-1.0); Blood Urea Nitrogen < 5 mg/dL (9-23); Calcium 10.2 mg/dL (8.7-10.4); Carbon Dioxide 23 mmol/L (20-31); Chloride 112 mmol/L (98-107); Glucose 202 mg/dL (74-106); Potassium 3.5 mmol/L (3.5-5.1); Sodium 144 mmol/L (136-145); Total Protein 6.8 g/dL (5.7-8.2)
[2024-09-26 08:47] VITALS: BP 141/43; PULSE 80; RESP 16; TEMP 97.8; O2SAT 96
[2024-09-26 13:00] VITALS: BP 155/82; PULSE 79; RESP 17; TEMP 97.7; O2SAT 99
[2024-09-26 13:48] VITALS: BP 141/43; PULSE 80; RESP 16; TEMP 97.8; O2SAT 96
--- NOTE | 2024-09-26 13:53 | DVHDSRES ---
Discharge Summary Date of Admission Resident Creating Document: KEIRA WADE RESIDENT Sep 23, 2024 at 15:04 Date of Discharge: Sep 26, 2024 Admitting Diagnosis Left pontine acute ischemic stroke Labs/Diagnostic Data: Laboratory Results Test 09/26/24 06:23 09/26/24 05:28 09/25/24 11:57 09/24/24 10:52 POC Glucose 234 mg/dl (70-106) White Blood Count 6.2 10^3/uL (4.4-10.8) Red Blood Count 4.36 10^6/uL (4.0-5.20) Hemoglobin 14.0 g/dL (12.2-16.2) Hematocrit 40.2 % (36.0-46.0) Mean Corpuscular Volume 92.1 fL (80.0-100.0) Mean Corpuscular Hemoglobin 32.0 pg (28.0-32.0) Mean Corpuscular Hemoglobin Concent 34.7 g/dL (32.0-36.0) Red Cell Distribution Width 13.9 % (11.8-14.3) Platelet Count 271 10^3/uL (140-450) Mean Platelet Volume 8.9 fL (6.9-10.8) Neutrophils (%) (Auto) 54.9 % (37.0-80.0) Lymphocytes (%) (Auto) 30.1 % (10.0-50.0) Monocytes (%) (Auto) 13.3 % (0.0-12.0) Eosinophils (%) (Auto) 0.6 % (0.0-7.0) Basophils (%) (Auto) 1.1 % (0.0-2.0) Neutrophils # (Auto) 3.4 10 ^3/uL (1.6-8.6) Lymphocytes # (Auto) 1.8 10 ^3/uL (0.4-5.4) Monocytes # (Auto) 0.8 10 ^3/uL (0-1.3) Eosinophils # (Auto) 0 10 ^3/uL (0-0.8) Basophils # (Auto) 0.1 10 ^3/uL (0-0.2) Nucleated Red Blood Cells 0.0 % Sodium Level 144 mmol/L (136-145) Potassium Level 3.5 mmol/L (3.5-5.1) Chloride Level 112 mmol/L (98-107) Carbon Dioxide Level 23 mmol/L (20-31) Anion Gap 9 (5-15) Blood Urea Nitrogen < 5 mg/dL (9-23) Creatinine 0.59 mg/dL (0.550-1.02) Glomerular Filtration Rate Calc 102 mL/min (>90) BUN/Creatinine Ratio 8.5 (10.0-20.0) Serum Glucose 202 mg/dL (74-106) Calcium Level 10.2 mg/dL (8.7-10.4) Total Bilirubin 0.4 mg/dL (0.2-1.0) Aspartate Amino Transferase (AST) 17 U/L (13-40) Alanine Aminotransferase (ALT) 16 U/L (7-40) Alkaline Phosphatase 85 U/L (46-116) Total Protein 6.8 g/dL (5.7-8.2) Albumin 4.6 g/dL (3.2-4.8) Triglycerides Level 112 mg/dL (< 150) Cholesterol Level 130 mg/dL (< 200) LDL Cholesterol 60 mg/dL (< 100) HDL Cholesterol 56 mg/dL (40-59) Vitamin B12 Level 440 pg/mL (211-911) Folic Acid 33.32 ng/mL (>5.38) Test 09/24/24 09:05 09/24/24 08:49 09/23/24 15:01 09/23/24 12:30 Hemoglobin A1c 8.5 % A1C (<5.7) Magnesium Level 2.0 mg/dL (1.6-2.6) Urine Opiates Screen Neg (NEGATIVE) Urine Fentanyl Screen Neg (NEGATIVE) Urine Barbiturates Screen Neg (NEGATIVE) Urine Phencyclidine Screen Neg (NEGATIVE) Urine Amphetamines Screen Neg (NEGATIVE) Urine Benzodiazepines Screen Neg (NEGATIVE) Urine Cocaine Screen Neg (NEGATIVE) Urine Cannabinoids Screen Neg (NEGATIVE) Urine Color Colorless (Yellow) Urine Clarity Clear (Clear) Urine pH 6.5 (5.0-9.0) Urine Specific [place] 1.003 (1.001-1.035) Urine Protein Negative (Negative) Urine Ketones Negative (Negative) Urine Blood Negative /uL (Negative) Urine Nitrite Negative (Negative) Urine Bilirubin Negative (Negative) Urine Urobilinogen Normal mg/dL (Negative) Urine Leukocyte Esterase Negative /uL (Negative) Urine RBC None seen /hpf (0 - 4) Urine Microscopic WBC < 1 /HPF (0-5) Urine Squamous Epithelial Cells Few /hpf (<5) Urine Bacteria None seen /hpf (None Seen) Urine Glucose Normal mg/dL (Normal) Troponin I High Sensitivity 4 ng/L (</=34) Other Laboratory Tests 09/26/24 05:28 Brief Hx & Hospital Course: 59 year old female with history of CVA with left-sided weakness, hypertension, diabetes comes to the ED with the complaints of sudden onset of speech difficulty, she did not have headaches, vomiting nausea or any other complaints. She denies chest pain, shortness of breath, fever, abdominal pain or any other complaints. Brief history of hospitalization: Patient had Cerebrovascular accident with dysarthria and left-sided weakness, Left pontine acute ischemic stroke and was put on telemetry. MRI was done no compatible machine which revealed left pontine stroke. A CT angio scan findings showed moderate stenosis of the left cavernous carotid artery. High-grade stenosis of the proximal left internal carotid artery. Vascular surgery evaluation is recommended. Likely old bilateral parietal infarcts. Patchy ground-glass opacities in the visualized lung apices. Neurology consult was done suggested atorvastatin 40 mg, continue aspirin, clopidogrel, physical therapy and supportive management. Patient has been asked to follow up [facility] outpatient with the neurologist. echocardiography was ordered to rule out embolic stroke and for carotid artery stenosis cardiology has been on board. We allowed permissive hypertension due to stroke and held blood pressure medications. Patient's blood pressure has been stabilized now in for his hypertension we monitored his BP. For history of DVT we continued Eliquis in for diabetes and insulin sliding scale was begun. We have counseled the patient regarding cessation of smoking for more than 10 minutes and patient has communicated understanding. She is now stable and can be discharged. We are discharging her on abatacept, amlodipine, apixaban, atorvastatin, baclofen, bupropion, clopidogrel, docusate, escitalopram, folic acid- pyridoxin-cyanocobalamin, furosemide, gabapentin, hydrocodone- acetaminophen, hydroxychloroquine sulfate, insulin glargine, leflunomide, losartan, metformin, methotrexate, tramadol. We have also counseled patient regarding her carotid artery stenosis and to meet Dr. Stafford outpatient. General Appearance: Facial deviation towards the left side, Alert, Oriented X3, Cooperative, Mild distress HEENT: Atraumatic, Mucous membranes moist/pink Respiratory: Clear to auscultation, Normal air movement, No added sounds Cardiovascular: Regular rate, Normal S1, Normal S2, No murmurs Abdominal/ : Active bowel sounds, Soft, no distention, no tenderness Extremities: No edema, Normal pulses, No tenderness/swelling Skin: No Significant rash, except past surgical scars Neuro: Normal speech, left-sided upper and lower extremity weakness 4+ Psych/Mental Status: Mental status NL, Mood NL Nurse was there as cpr instructor during examination Operations or Procedures CXR IMPRESSION: Small left pleural effusion. Cardiomegaly with CHF. Liver US IMPRESSION: Hepatic steatosis/ hepatic cirrhosis CHEST RADIOGRAPH IMPRESSION: Left lower lobe / retrocardiac airspace opacification CT HEAD WITHOUT CONTRAST IMPRESSION: No acute intracranial abnormality. Condition at Discharge: Stable Final Diagnosis/Problems List Left pontine acute ischemic stroke HTN Hx DVT Diabetes Smoking Discharge Disposition: Home with Health Services Discharge Instruct/Medications Diet: Consistent carbohydrate, Cardiac 2g Na,low cholest Activity: No Restrictions, As Tolerated Follow Up/Referral: followup with neurology KENZIE followup in discharge clinic within 7 days Medications: as per emr Scheduled Apixaban Base (Eliquis), 5 MG PO BID Atorvastatin Calcium (Atorvastatin Calcium), 1 TAB PO DAILY, (Reported) Baclofen (Baclofen), 10 MG PO Q8HP, (Reported) Clopidogrel Bisulfate (Clopidogrel), 1 TAB PO DAILY, (Reported) Folic Toin-Mhceuidexh-Iuiocoyh (Folbic), 1 TAB PO DAILY, (Reported) Furosemide (Lasix), 20 MG PO DAILY, (Reported) Hydroxychloroquine Sulfate (Plaquenil), 1 TAB PO BID, (Reported) Losartan Potassium (Losartan Potassium), 1 TAB PO DAILY, (Reported) Metformin Hydrochloride (Metformin Hcl), 500 MG PO DAILY, (Reported) Scheduled PRN Hydrocodone-Acetaminophen (Hydrocodone Bitartrate/AC 10-325 mg), 1 TAB PO TIDPRN PRN Miscellaneous Medications Abatacept Injection (Orencia), 125 MG SC, (Reported) Amlodipine Besylate (Norvasc Tablet), 10 MG GT, (Reported) Bupropion Hcl (Wellbutrin Sr), 100 MG PO, (Reported) Docusate Sodium (Colace), 100 MG PO, (Reported) Escitalopram Oxalate (Escitalopram Oxalate), 15 MG PO, (Reported) Gabapentin (Gabapentin), 400 MG PO, (Reported) Insulin Glargine (Lantus), 25 UNIT SC, (Reported) Leflunomide (Leflunomide), 20 MG PO, (Reported) Methotrexate (Methotrexate), 2.5 MG PO, (Reported) Tramadol Hcl (Tramadol Hcl), 50 MG PO, (Reported) Discontinued Medications Aspirin (Aspir-Low), 81 MG PO DAILY, (Reported) Atorvastatin Calcium (Lipitor), 1 TAB PO QPM, (Reported) Escitalopram Oxalate (Lexapro), 10 MG PO DAILY, (Reported) Escitalopram Oxalate (Escitalopram Oxalate), 1 TAB PO HS, (Reported) Gabapentin (Gabapentin), 300 MG PO TID, (Reported) Insulin Glargine (Lantus), 15 UNIT SC HS, (Reported) Insulin Lispro (Human) (Humalog), 6 UNIT SC AC, (Reported) Lisinopril & Hydrochlorothiazi (Zestoretic 20-12.5 mg), 1 TAB PO DAILY, (Reported) Discharge Statement: "Patient was advised to return to the ER or call 911 if any headaches, dizziness, shortness of breath, chest pain, abdominal pain, bleeding, fevers, or worsening of medical condition. Patient was counseled about treatment plan, medications, possible side effects, patientverbalized understanding. All questions were answered to the best of my ability. This discharge took greater then 30 minutes in planning, reviewing documentation, counseling the patient, and discussing with other team members." ASSESSMENT ASSESSMENT Assessment Cerebrovascular accident with dysarthria and left-sided weakness Left pontine acute ischemic stroke HTN Hx DVT Diabetes Date of Service: Sep 26, 2024 Billing Provider: DOMINIC PARKS MD Common Visit Codes: 75112-ABG/OBS DISCH DAY >30min KEIRA WADE RESIDENT Sep 26, 2024 13:53 DOMINIC PARKS MD Sep 27, 2024 11:12
== END 2024-09-26 14:20 | disposition home health service (06) | DRG 45 ==
LOC: ER 11:56 → OVERFLOW 15:04 → EAST 16:22 → TELE-EAST 09-26 02:28
PROVIDERS: ADMIT Internal Medicine; ATTEND Internal Medicine
DX: I63.9 Cerebral infarction, unspecified (principal); G93.89 Other specified disorders of brain; G81.94 Hemiplegia, unspecified affecting left nondominant side; E11.9 Type 2 diabetes mellitus without complications; I10 Essential (primary) hypertension; F17.210 Nicotine dependence, cigarettes, uncomplicated; E78.5 Hyperlipidemia, unspecified; R47.1 Dysarthria and anarthria; Z88.1 Allergy status to other antibiotic agents; Z79.01 Long term (current) use of anticoagulants; Z79.4 Long term (current) use of insulin; Z79.84 Long term (current) use of oral hypoglycemic drugs; Z79.899 Other long term (current) drug therapy; Z82.49 Family history of ischemic heart disease and other diseases of the circulatory system; Z82.3 Family history of stroke; Z80.51 Family history of malignant neoplasm of kidney; Z83.3 Family history of diabetes mellitus; Z90.710 Acquired absence of both cervix and uterus; Z86.718 Personal history of other venous thrombosis and embolism; R29.703 NIHSS score 3
CPT/HCPCS: 36415; 70450; 70496; 70498; 70551; 71045; 80048; 80053; 80061; 80307; 81001; 82607; 82746; 82962; 83036; 83735; 84484; 85025; 93306; 93886; 96360; 96361; 96372; 97110; 97116; 97163; 97530; 99291; 99292; G0378; J1815